=== PATIENT | male | born 1955 | race Caucasian/White ===

== ENCOUNTER 2016-10-11 13:53 | Observation (INO) | payer SELFPAY ==
[~2016-10-11] VITALS: Ht 180.3 cm; Wt 84.1 kg
[~2016-10-11 13:53] MED LIST: BENICAR 20MG TA20 MG PO; CYMBALTA 60MG60 MG PO; HALCION; PREVACID 30MG30 MG PO
[2016-10-11] MEDS ORDERED: PRINIVIL10 MG PO (15:23)
[2016-10-11] MEDS ORDERED: PRILOSEC 20MG20 MG PO (15:23)
[2016-10-11] MEDS ORDERED: HCTZ 25MG TAB25 MG PO (15:23)
[2016-10-11] MEDS ORDERED: ZOLOFT 50MG50 MG PO (15:24)
[2016-10-11] MEDS ORDERED: REMERON 15M15 MG/TA1 PO (15:24)
[2016-10-11] MEDS ORDERED: XANAX .25M0.25 MG/TA PO ×2 (15:25→15:26)
[2016-10-11 16:25] VITALS: BP 142/97; PULSE 87; TEMP 99
[2016-10-11 17:56] VITALS: BP 152/91; PULSE 95; TEMP 99.9
[2016-10-11 18:07] LABS: PARTIAL THROMBOPLASTIN TIME 33.6 SECONDS (26.0-37.0)
[2016-10-11 18:09] LABS: INR 1.1 (0.8-3.0); PROTHROMBIN TIME 12.2 SECONDS (9.7-12.8)
[2016-10-11 20:00] VITALS: BP 157/98; PULSE 88; TEMP 99.1
[2016-10-11 22:17] VITALS: BP 144/91; PULSE 92; TEMP 99
[2016-10-11 23:59] VITALS: BP 147/96; PULSE 96; TEMP 99.2
[2016-10-12] VITALS (8 sets, daily range): BP systolic 144–176; BP diastolic 90–105; PULSE 62–94; TEMP 98.5–100.1
[2016-10-12 07:43] LABS: BASO % 0.6 % (0.0-2.0); EOS # 0.1 (0.0-0.7); EOS % 1.5 % (0-4.0); GRAN # 4.6 (1.4-6.5); GRAN % 64.5 % (42.2-75.2); HEMATOCRIT 39.9 % (42.0-52.0); HEMOGLOBIN 13.4 g/dl (13.5-18.0); LYMPH # 1.6 (1.2-3.4); LYMPH % 21.8 % (20.0-51.0); MEAN CELL VOLUME 98 fl (80.0-100.0); MEAN CORPUSCULAR HEMOGLOBIN 33 pg (27.0-31.0); MEAN CORPUSCULAR HGB CONC 34 g/dl (33.0-37.0); MEAN PLATELET VOLUME 10.1 fl (7.4-10.4); MONO # 0.8 (0.1-0.6); MONO % 11.3 % (1.7-9.3); PLATELET COUNT 180 K/mm3 (130-400); RED BLOOD COUNT 4.08 M/mm3 (4.20-5.60); WHITE BLOOD COUNT 7.1 K/mm3 (4.8-10.8)
[2016-10-12 08:30] LABS: ALBUMIN 3.1 gm/dL (3.5-5.0); BILIRUBIN,TOTAL 2.1 mg/dL (0.0-1.0); CALCIUM 8.3 mg/dL (8.4-10.2); CREATININE, serum 0.86 mg/dL (0.66-1.25); POTASSIUM 3.1 mmol/L (3.4-5.0); TOTAL PROTEIN 6.5 gm/dL (6.4-8.2)
== END 2016-10-12 17:39 | disposition home or self-care (01) ==
LOC: SURG 13:53
PROVIDERS: Surgery
DX: R11.2 Nausea with vomiting, unspecified (principal); F10.10 Alcohol abuse, uncomplicated; I10 Essential (primary) hypertension
CPT/HCPCS: G0378; G0379; J2060; J2405

== ENCOUNTER 2017-07-26 13:08 | Day surgery (SDC) | payer SELFPAY ==
[~2017-07-26] VITALS: Ht 180.3 cm; Wt 95.9 kg
[~2017-07-26 13:08] MED LIST changes: +HCTZ 25MG TAB25 MG PO; +PRILOSEC 20MG20 MG PO; +PRINIVIL10 MG PO; +REMERON 15M15 MG/TA1 PO; +XANAX .25M0.25 MG/TA PO; +ZOLOFT 50MG50 MG PO
[2017-07-26 14:21] VITALS: BP 143/86; PULSE 81; TEMP 98.4
[2017-07-26] MEDS ORDERED: XANAX 0.5MG0.5 MG PO (14:34)
[2017-07-26] MEDS ORDERED: ZOLOFT 100MG100 MG PO (14:34)
[2017-07-26] MEDS ORDERED: BENADRYL25 M2 PO (14:35)
[2017-07-26] MEDS ORDERED: PRILOTC PO (14:35)
[2017-07-26 14:36] LABS: CALCIUM 9.4 mg/dL (8.4-10.2); CREATININE, serum 0.77 mg/dL (0.66-1.25); POTASSIUM 4.2 mmol/L (3.4-5.0)
[2017-07-26 18:30] VITALS: BP 165/90; PULSE 82; TEMP 98.3
[2017-07-26 18:45] VITALS: BP 156/98; PULSE 64
[2017-07-26 19:15] VITALS: BP 142/89; PULSE 63
[2017-07-26 19:45] VITALS: BP 147/96; PULSE 64; TEMP 98.3
[2017-07-26 21:15] VITALS: BP 160/93; PULSE 64; TEMP 98.3
== END 2017-07-26 21:36 | disposition home or self-care (01) ==
LOC: SDCO 13:08 → SURG 18:30 → SDCO 21:36
PROVIDERS: Nurse Anesthetist, Certified Registered
DX: N30.81 Other cystitis with hematuria (principal); N32.9 Bladder disorder, unspecified; I10 Essential (primary) hypertension; F17.210 Nicotine dependence, cigarettes, uncomplicated; K21.9 Gastro-esophageal reflux disease without esophagitis; F10.10 Alcohol abuse, uncomplicated; F12.90 Cannabis use, unspecified, uncomplicated; F32.9 Major depressive disorder, single episode, unspecified; F41.9 Anxiety disorder, unspecified; E78.5 Hyperlipidemia, unspecified; G47.00 Insomnia, unspecified; M72.2 Plantar fascial fibromatosis
CPT/HCPCS: OP; C1769; J0360; J0690; J1170; J1885; J2405; J2704; J3010; J7120; Q9967

== ENCOUNTER 2017-09-27 15:26 | Inpatient (IN) | payer SELFPAY ==
[~2017-09-27] VITALS: Ht 180.3 cm; Wt 96.1 kg
[~2017-09-27 15:26] MED LIST changes: +BENADRYL25 M2 PO; +PRILOTC PO; +XANAX 0.5MG0.5 MG PO; +ZOLOFT 100MG100 MG PO
[2017-10-03] VITALS (11 sets, daily range): BP systolic 112–169; BP diastolic 70–94; PULSE 80–101; TEMP 97.7–100.6
[2017-10-04] VITALS (14 sets, daily range): BP systolic 127–187; BP diastolic 82–100; PULSE 80–94; TEMP 98.1–98.7
[2017-10-05] VITALS (10 sets, daily range): BP systolic 136–170; BP diastolic 86–97; PULSE 80–97; TEMP 97.8–100.5
[2017-10-05 07:37] LABS: HEMATOCRIT 37.8 % (42.0-52.0)
[2017-10-05 07:51] LABS: CALCIUM 8.8 mg/dL (8.4-10.2); CREATININE, serum 0.69 mg/dL (0.66-1.25); POTASSIUM 3.4 mmol/L (3.4-5.0)
[2017-10-06] VITALS (7 sets, daily range): BP systolic 133–158; BP diastolic 78–98; PULSE 65–92; TEMP 98.2–99.3
[2017-10-06] MEDS ORDERED: ROXICODONE 55 MG/TAB PO (11:07)
== END 2017-10-06 13:10 | disposition home or self-care (01) | DRG 982 ==
LOC: INPTSU 10-03 05:17 → SURG 10-03 07:30
PROVIDERS: Surgery
PROC: 8E0W4CZ Robotic Assisted Procedure of Trunk Region, Percutaneous Endoscopic Approach (ICD-10-PCS; 2017-10-03)
PROC: 0DTN4ZZ Resection of Sigmoid Colon, Percutaneous Endoscopic Approach (ICD-10-PCS; principal; 2017-10-03 07:30)
DX: N32.1 Vesicointestinal fistula (principal); K57.32 Diverticulitis of large intestine without perforation or abscess without bleeding; D12.5 Benign neoplasm of sigmoid colon; I10 Essential (primary) hypertension; F10.10 Alcohol abuse, uncomplicated; Z23 Encounter for immunization
CPT/HCPCS: A4314; A9284; J0360; J0690; J1100; J1650; J1885; J2060; J2405; J2704; J2710; J3010; J7120

== ENCOUNTER 2020-09-24 16:22 | Inpatient (IN) | payer MEDICAID, OTHER ==
[~2020-09-24] VITALS: Ht 190.5 cm; Wt 81.9 kg
[2020-09-24] VITALS (144 sets, daily range): BP systolic 86–97; BP diastolic 55–67; PULSE 79–84; TEMP 98–98.4; O2SAT 84–100
[~2020-09-24 16:22] MED LIST changes: +ROXICODONE 55 MG/TAB PO
[2020-09-24 20:38] LABS: HEMOGLOBIN 11.9 g/dl (13.5-18.0); MEAN CELL VOLUME 88 fl (80.0-100.0); MEAN CORPUSCULAR HEMOGLOBIN 29 pg (27.0-31.0); MEAN CORPUSCULAR HGB CONC 33 g/dl (33.0-37.0); MEAN PLATELET VOLUME 11.1 fl (7.4-10.4); PLATELET COUNT 343 K/mm3 (130-400); RED BLOOD COUNT 4.17 M/mm3 (4.20-5.60)
[2020-09-24 20:44] LABS: ALBUMIN 2.7 gm/dL (3.5-5.0); BILIRUBIN,TOTAL 4.8 mg/dL (0.0-1.0); CALCIUM 7.8 mg/dL (8.4-10.2); CREATININE, serum 0.69 (0.66-1.25); HEMATOCRIT 36.5 % (42.0-52.0); POTASSIUM 3.7 mmol/L (3.4-5.0); TOTAL PROTEIN 6.1 gm/dL (6.4-8.2)
[2020-09-24 21:01] LABS: BAND 3 % (0-10); EOSINOPHIL 1 % (0-4); HYPOCHROMIA 1+; LYMPHOCYTE 10 % (20.0-51.0); METAMYELOCYTE 1 % (0-0); MYELOCYTE 1 % (0-0); NEUTROPHILS 82 % (42.0-75.2)
[2020-09-24 21:02] LABS: ANISOCYTOSIS 1+; PLATELET ESTIMATE NORMAL (NORMAL)
[2020-09-24 21:12] LABS: ARTERIAL BLOOD GAS HCO3 26.6 meq/L (22-26); ARTERIAL BLOOD GAS PCO2 43.8 mmHg (35-45); ARTERIAL BLOOD GAS PO2 73.2 mmHg (80-100)
[2020-09-24 21:13] LABS: ARTERIAL BLD GAS O2 SATURATION 94.8 % (92-100); ARTERIAL BLD GAS TCO2 CT 27.9; ARTERIAL BLOOD GAS BASE EXCESS 1.5 (-2-2)
[2020-09-24 21:19] LABS: INR 1.2 (0.8-3.0); PROTHROMBIN TIME 13.1 SECONDS (9.7-12.8)
[2020-09-24 21:43] LABS: AMYLASE 86 U/L (30-110); LIPASE 141 U/L (23-300)
[2020-09-24] MEDS ORDERED: BENADRYL25 M2 PO (22:04)
--- NOTE | 2020-09-24 22:05 | NUR ---
Vancomycin Initial Dosing Pharmacy Note Ordering provider: Rayray Hartmann MD 64 yo M transfer from [place], post surgical intervention for acute gangrenous cholecystitis on 09/21. Began worsening on 09/22 and OSH BC grew out MRSA. Indication: GI/Intra-abdominal infection (7 days) Goal: 15-20 Hx: none identified BMI:27.9 Wt: 101.4kg SCr: 0.69 estCrCl ~ 159 ml/min t 1/2~5h No vitals documented at this time but has been requiring pressor support WBC: 19 LA:1.5 Micro pending Per discussion with Jenny COVARRUBIAS, no evidence of vanco given at OSH, only zosyn. Loaded pt with 2gm (~20mg/kg) x1. Will start a maintenance regimen of 1.75 gm q12h, as renal function in unlikely an accurat depiction of clearance ability at this time. Will follow renal function trend and micro for need to adjust therapy. Thank you for this dosing consult!
[2020-09-24] MEDS ORDERED: MOBIC15 MG PO (22:06)
[2020-09-24] MEDS ORDERED: COZAAR 25MG25 MG/TAB PO (22:06)
[2020-09-24] MEDS ORDERED: NEXIUM 20MG20 MG PO (22:07)
[2020-09-24] MEDS ORDERED: PROZAC40 MG PO (22:07)
[2020-09-24 22:09] LABS: MUCOUS Present /lpf; PH 5 (5-8); SQUAMOUS EPITHELIAL 0-2 /hpf; URINE APPEARANCE Hazy; URINE BACTERIA Rare /hpf; URINE BILIRUBIN Positive (NEGATIVE); URINE BLOOD 1+ (NEGATIVE); URINE COLOR Amber; URINE GLUCOSE Negative (NEGATIVE); URINE KETONE Negative (NEGATIVE); URINE LEUKOCYTE ESTERASE Negative (NEGATIVE); URINE NITRATE Negative (NEGATIVE); URINE PROTEIN(semi-quant) 1+ (NEGATIVE); URINE RBC 20-50 /hpf; URINE UROBILINOGEN >=4.0 mg/dL (NEGATIVE)
[2020-09-24 22:20] LABS: COLLECTION METHOD CLEAN CATCH
[2020-09-25] VITALS (760 sets, daily range): BP systolic 80–111; BP diastolic 46–65; PULSE 62–103; TEMP 97.9–99.1; O2SAT 77–99
--- NOTE | 2020-09-25 02:00 | NUR ---
PATIENT INTUBATED UPON ARRIVAL TO THIS HOSPITAL AND SEDATED
[2020-09-25 04:59] LABS: HEMOGLOBIN 11.2 g/dl (13.5-18.0); MEAN CELL VOLUME 89 fl (80.0-100.0); MEAN CORPUSCULAR HEMOGLOBIN 29 pg (27.0-31.0); MEAN CORPUSCULAR HGB CONC 33 g/dl (33.0-37.0); MEAN PLATELET VOLUME 11.3 fl (7.4-10.4); PLATELET COUNT 354 K/mm3 (130-400); RED BLOOD COUNT 3.81 M/mm3 (4.20-5.60); REDCELL DISTRIBUTION WIDTH-CV 17.2 % (11.5-14.5)
--- NOTE | 2020-09-25 05:00 | NUR ---
PATIENT CAN BE AWAKENED BY VOICE/ BECOMES RESTLESS/ B/P AFFECTED BY MEDS
[2020-09-25 05:09] LABS: HEMATOCRIT 33.9 % (42.0-52.0)
[2020-09-25 05:12] LABS: ARTERIAL BLD GAS O2 SATURATION 94.8 % (92-100); ARTERIAL BLD GAS TCO2 CT 28.2; ARTERIAL BLOOD GAS HCO3 26.9 meq/L (22-26); ARTERIAL BLOOD GAS PCO2 43.3 mmHg (35-45); ARTERIAL BLOOD GAS PO2 73.8 mmHg (80-100); ARTERIAL BLOOD GAS pH 7.41 (7.35-7.45)
[2020-09-25 05:13] LABS: ALBUMIN 2.6 gm/dL (3.5-5.0); BILIRUBIN,TOTAL 4.7 mg/dL (0.0-1.0); CALCIUM 7.6 mg/dL (8.4-10.2); CREATININE, serum 0.65 (0.66-1.25); MAGNESIUM 2.4 mg/dL (1.6-2.3); PHOSPHOROUS 2.3 mg/dL (2.5-4.5); POTASSIUM 3.8 mmol/L (3.4-5.0); TOTAL PROTEIN 5.7 gm/dL (6.4-8.2)
[2020-09-25 05:44] LABS: BAND 5 % (0-10); EOSINOPHIL 2 % (0-4); HYPOCHROMIA 1+; LYMPHOCYTE 11 % (20.0-51.0); METAMYELOCYTE 3 % (0-0); MYELOCYTE 1 % (0-0); NEUTROPHILS 74 % (42.0-75.2); OVALOCYTES 1+
[2020-09-25 05:45] LABS: ANISOCYTOSIS 1+; PLATELET ESTIMATE NORMAL (NORMAL); TARGET CELLS 1+
[2020-09-25 06:44] LABS: TRICYCLIC ANTIDEPRESS URINE NEGATIVE
--- NOTE | 2020-09-25 07:05 | NUR ---
RECEIVED REPORT FROM SACHA BOTELLO. PT RESTING EASILY ON CURRNET VENT SETTINGS: AC, TV 400, PEEP 10, RR 22, FIO2 75%. FC PATENT AND DRAINING TO GRAVITY. LT RADIAL ART LINE INTACT. SEE GTT FLOWSHEET. CARD DEALER IN PLACE. VSS.
--- NOTE | 2020-09-25 14:03 | NUR ---
Unknown Plan at this time, SW following. ROBB made contact with Corey Storey Son-Emr contact in [place]. Patient has another son in [facility] Alphonse [phone]. Son reports that he there is not a legal form for DPOA. Educated on decision making. Son reports that the patient does not have insurance but was seeing a physician at [facility] in [place]. Son denies that client had any DME use. Son indicated that he does not know much about the rest of his medcal care. SW will continue to follow to prepare for needs and services.
--- NOTE | 2020-09-25 14:20 | NUR ---
SPOKE TO DR WALKER ABOUT TF VS TPN. PHYSICIAN STATES TPN MAY BE BETTER AT THIS TIME. DR MATT NOTIFIED. DR MATT STATES TO LET SOFTWARE DESIGN ENGINEER KNOW TO PLACE ORDERS. ATTEMPTED TO CALL, NO ANSWER AT THIS TIME.
--- NOTE | 2020-09-25 14:45 | NUR ---
PT ROLLED TO RT SIDE TO PLACE PILOW UNDER BOTTOM. WHEN ROLLED BACK, NOTED MIDDLE ABDOMEN INCISION TO START LEAKING SHOWED DR WALKER DRAINAGE, NOTED BLOODY BUT HAS A GREEN TINGE AROUND THE DRAINAGE ON TOWEL. PHYSICIAN STATES TO PLACE A PRESSURE DRESSING OVER SITE AND TO TY AND GET CT ARIANA.
--- NOTE | 2020-09-25 17:20 | NUR ---
DR MATT NOTIFIED AND READ CT REPORTS. NO NEW ORDERS.
--- NOTE | 2020-09-25 17:23 | NUR ---
DR WALKER NOTIFIED OF CT RESULTS. NO NEW ORDERS.
--- NOTE | 2020-09-25 18:07 | NUR ---
SPOKE TO DR OLIVA ABOUT AMIO GTT. PHYSICIAN STATES TO TURN GTT DOWN TO 0.5 MG/MIN ONCE HIT 6 HOUR TERESA AND THEN KEEP CONTINUOUS TILL FURTHER INSTRUCTIONS AT A LATER TIME.
--- NOTE | 2020-09-25 22:00 | NUR ---
Pt SpO2 decreases to 78-85% during turns or oral care - reported this is not a new finding for this pt.
[2020-09-26] VITALS (551 sets, daily range): BP systolic 85–134; BP diastolic 49–76; PULSE 70–92; TEMP 97.2–99.7; O2SAT 79–100
--- NOTE | 2020-09-26 02:30 | NUR ---
Pt's SpO2 continues to desaturate during turning. RT notified.
--- NOTE | 2020-09-26 03:05 | NUR ---
Pt restless, but during stimulation pt wakens, opens eyes and follows several commands before closing eyes again.
[2020-09-26 04:24] LABS: ARTERIAL BLD GAS O2 SATURATION 95.2 % (92-100); ARTERIAL BLD GAS TCO2 CT 27.6; ARTERIAL BLOOD GAS BASE EXCESS 0.4 (-2-2); ARTERIAL BLOOD GAS HCO3 26.1 meq/L (22-26); ARTERIAL BLOOD GAS PCO2 46.9 mmHg (35-45); ARTERIAL BLOOD GAS PO2 77.3 mmHg (80-100); ARTERIAL BLOOD GAS pH 7.36 (7.35-7.45)
[2020-09-26 05:58] LABS: HEMOGLOBIN 10.4 g/dl (13.5-18.0); MEAN CELL VOLUME 91 fl (80.0-100.0); MEAN CORPUSCULAR HEMOGLOBIN 29 pg (27.0-31.0); MEAN CORPUSCULAR HGB CONC 31 g/dl (33.0-37.0); MEAN PLATELET VOLUME 11.5 fl (7.4-10.4); PLATELET COUNT 321 K/mm3 (130-400); RED BLOOD COUNT 3.64 M/mm3 (4.20-5.60); REDCELL DISTRIBUTION WIDTH-CV 17.7 % (11.5-14.5)
[2020-09-26 06:12] LABS: ALBUMIN 2.4 gm/dL (3.5-5.0); BILIRUBIN,TOTAL 4.5 mg/dL (0.0-1.0); CALCIUM 7.3 mg/dL (8.4-10.2); CREATININE, serum 0.53 (0.66-1.25); MAGNESIUM 2.4 mg/dL (1.6-2.3); PHOSPHOROUS 3.6 mg/dL (2.5-4.5); POTASSIUM 3.6 mmol/L (3.4-5.0); TOTAL PROTEIN 5.7 gm/dL (6.4-8.2)
[2020-09-26 06:19] LABS: HEMATOCRIT 33.1 % (42.0-52.0)
[2020-09-26 06:33] LABS: BAND 5 % (0-10); BASOPHIL 1 % (0-2); EOSINOPHIL 2 % (0-4); HYPOCHROMIA 2+; LYMPHOCYTE 9 % (20.0-51.0); NEUTROPHILS 77 % (42.0-75.2); PLATELET ESTIMATE NORMAL (NORMAL)
--- NOTE | 2020-09-26 07:00 | NUR ---
RECEIVED REPORT FROM SACHA ALLEN. PT RESTING EASILY ON CURRENT VENT SETTINGS: TV 400, PEEP 12, FIO2 80, RR 22. FC PATENT AND DRAINING TO GRAVITY. OGT AT 70 CM TO LIS. ETT 23 AT THE TEETH. PIN DRAFTING MACHINE TENDER IN PLACE. VSS. LT RADIAL ART LINE WITH GOOD WAVE FORM. SEE GTT FLOWSHEET.
--- NOTE | 2020-09-26 14:15 | NUR ---
DR WALKER AT BEDSIDE FOR ASSESSMENT. PHYSICIAN CHANGES MIDDLE ABDOMEN DRESSING OUT AND MAKES A SMALL DRAIN OUT OF NON-ADHESIVE GAUZE AND PLACES 4X4 AND MOLNLYCKE MEFIX TAPE OVER IT. PHYSICIAN STATES EVERY 24 HOURS TO TAKE DRESSING OFF AND PUTT DRAIN OUT ABOUT 1/4 INCH EACH TIME AND REPLACE DRESSING OVER. PHYSICIAN STATES TO DO THIS UNTIL IT COMES OUT OR APPEARS TO NOT BE DRAINING HARDLY ANYMORE THEN IT CAN BE PULLED COMPLETELY OUT. PHYSICIAN STATES NO OTHER PLANS FROM HIM AT THIS TIME. DR WALKER NOTES ABRAHAM DRAIN FLUID TO BE MORE GREEN AND A LITTLE LESS CLOUDY TODAY, STATES WILL LEAVE IN PLACE AT THIS TIME.
[2020-09-27] VITALS (584 sets, daily range): BP systolic 102–140; BP diastolic 53–84; PULSE 67–98; TEMP 97.9–98.9; O2SAT 82–99
[2020-09-27 06:08] LABS: HEMOGLOBIN 10.5 g/dl (13.5-18.0); MEAN CELL VOLUME 91 fl (80.0-100.0); MEAN CORPUSCULAR HEMOGLOBIN 29 pg (27.0-31.0); MEAN CORPUSCULAR HGB CONC 31 g/dl (33.0-37.0); MEAN PLATELET VOLUME 11.3 fl (7.4-10.4); PLATELET COUNT 359 K/mm3 (130-400); RED BLOOD COUNT 3.67 M/mm3 (4.20-5.60); REDCELL DISTRIBUTION WIDTH-CV 17.7 % (11.5-14.5)
[2020-09-27 06:15] LABS: HEMATOCRIT 33.4 % (42.0-52.0)
[2020-09-27 06:19] LABS: ALBUMIN 2.5 gm/dL (3.5-5.0); BILIRUBIN,TOTAL 4.8 mg/dL (0.0-1.0); CALCIUM 7.7 mg/dL (8.4-10.2); CREATININE, serum 0.66 (0.66-1.25); MAGNESIUM 2.3 mg/dL (1.6-2.3); PHOSPHOROUS 4.9 mg/dL (2.5-4.5); POTASSIUM 3.6 mmol/L (3.4-5.0); TOTAL PROTEIN 6.2 gm/dL (6.4-8.2)
--- NOTE | 2020-09-27 06:42 | NUR ---
PATIENT BECOMES RESTLESS MOVING HEAD ABOUT THE BED AND COUGHING, RETURN MEDS TO THEIR SAME LEVELS BEFORE
--- NOTE | 2020-09-27 07:20 | NUR ---
RECEIVED REPORT FROM SACHA BOTELLO. PT RESTING EASILY ON CURRENT VENT SETTINGS: TV 400, PEEP 12, FIO2 80%, RR 22. OGT AT 70 CM TO LIS. ABRAHAM RLQ NOTED STILL WITH MINIMAL GEEN DRIANAGE NOTED IN BULB. VSS. NEONATAL PEDIATRIC NURSE IN PLACE. SEE GTT FLOWSHEET.
[2020-09-27 07:34] LABS: ARTERIAL BLOOD GAS BASE EXCESS 4.2 (-2-2); ARTERIAL BLOOD GAS HCO3 29.6 meq/L (22-26); ARTERIAL BLOOD GAS PCO2 47.6 mmHg (35-45); ARTERIAL BLOOD GAS PO2 71.3 mmHg (80-100); ARTERIAL BLOOD GAS pH 7.41 (7.35-7.45)
[2020-09-27 07:35] LABS: ARTERIAL BLD GAS O2 SATURATION 93.7 % (92-100)
--- NOTE | 2020-09-27 08:00 | NUR ---
RT AT BEDSIDE DECREASING FIO2 TO 70%. DR MONTIEL AT BEDSIDE FOR ASSESSMENT. DISCUSSES POC WITH RN AND STATES TO ASK CARDIOLOGY ABOUT SWITCHING AMIO GTT TO NOT CONTINUOUS, WILL SPEAK TO CARDIOLOGY WHEN THEY ROUND. NEW ORDERS RECEIVED BY DR MONTIEL.
--- NOTE | 2020-09-27 08:30 | NUR ---
NOTED ORDERS FOR PICC PLACEMENT. SPOKE WITH DR MATT ABOUT NEEDING THREE LINES OF IV ACCESS D/T COMPATIBILITY AT THIS TIME UNTIL PT EITHER COMES OF AMIO GTT OR TPN. PHYSICIAN STATES IT IS OK TO HOLD OFF ON PICC SWAP FOR CENTRAL UNTIL PT''S STATUS IMPROVES TO WHERE COMPATIBILITY ISSUES ARE NO LONGER. AIV RN NOTIFIED OF POC AT THIS TIME.
[2020-09-27 08:41] LABS: BAND 6 % (0-10); EOSINOPHIL 2 % (0-4); HYPERSEGMENTED POLYS PRESENT; LYMPHOCYTE 4 % (20.0-51.0); METAMYELOCYTE 2 % (0-0); NEUTROPHILS 84 % (42.0-75.2)
[2020-09-27 08:45] LABS: HYPOCHROMIA 1+
[2020-09-27 08:46] LABS: POIKILOCYTOSIS 1+; ROULEAUX 2+; TEAR DROP CELLS 1+
[2020-09-27 09:11] LABS: ANISOCYTOSIS 1+
--- NOTE | 2020-09-27 10:08 | NUR ---
The patient is intubated. SW contacted the patient's son, Corey Johnson, to establish next of kin. Corey reports that the patient's and their mother is . The patient has two living children: Corey Johnson and [place] Johnson. SW contacted [facility] Medical Records. The campus receptionist reports that they do not have a DPOA-HC on file for the patient.
--- NOTE | 2020-09-27 10:08 | NUR ---
OGT OUT PER DR OLIVA'S REQUEST. CARMEN PERFROMED BY STARTED AT 1010, ENDED AT 1035. OGT 14FR REPLACED AT SAME POSITION BEFORE, 70CM AT THE LIP, AIR BOLUS VERIFIED BY RN AND SACHA MOSQUEDA. VSS.
--- NOTE | 2020-09-27 11:30 | NUR ---
ABDOMINAL DRESSING CHANGED PER DR WALKER'S INSTRUCTIONS. SMALL AMOUNT OF DRAINAGE NOTED ON DRESSING WITH SHADOWING ALL THE WAY THROUGH IT ON THE OUTSIDE.
--- NOTE | 2020-09-27 12:00 | NUR ---
DR WALKER AT BEDSIDE FOR ASSESSMENT. PHYSICIAN STATES OKAY TO CONTINUE TPN FOR A FEW DAYS UNTIL BOWEL SOUNDS IMPROVE.
--- NOTE | 2020-09-27 13:30 | NUR ---
DR GRIFFITH AT BEDSIDE FOR ASSESSMENT. PHYSICIAN STATES DOES RECOMMEND AN ERCP AND WILL ACCESS FOR POSSIBILITY EITHER SUNDAY OR SUNDAY THIS WEEK IF PT IS STABLE ENOUGH.
--- NOTE | 2020-09-27 17:30 | NUR ---
NOTIFIED DR WALKER ABOUT PT'S ABDOMINAL DRESSING NEEDING TO BE CHANGED ALREADY D/T BEING SATURATED. PHYSICIAN STATES TO USE FOAM TAPE THIS TIME AND TRY TO CREATE A PRESSURE LIKE DRESSING. PHYSICIAN STATES TO MAKE SURE THAT THERE IS A RECHECK HGB IN THE AM AND TO NOTIFY HIM IF THE BLEEDIGN WORSENS AND PICKS UP.
[2020-09-28] VITALS (662 sets, daily range): BP systolic 103–136; BP diastolic 52–73; PULSE 68–122; TEMP 98.2–99.4; O2SAT 78–98
[2020-09-28 05:43] LABS: ARTERIAL BLD GAS O2 SATURATION 87.7 % (92-100); ARTERIAL BLD GAS TCO2 CT 31.9; ARTERIAL BLOOD GAS BASE EXCESS 4.4 (-2-2); ARTERIAL BLOOD GAS HCO3 30.3 meq/L (22-26); ARTERIAL BLOOD GAS PCO2 52.1 mmHg (35-45); ARTERIAL BLOOD GAS PO2 54.7 mmHg (80-100); ARTERIAL BLOOD GAS pH 7.38 (7.35-7.45)
[2020-09-28 05:46] LABS: MEAN CELL VOLUME 90 fl (80.0-100.0); MEAN CORPUSCULAR HGB CONC 32 g/dl (33.0-37.0); MEAN PLATELET VOLUME 11.3 fl (7.4-10.4); PLATELET COUNT 388 K/mm3 (130-400); REDCELL DISTRIBUTION WIDTH-CV 17.7 % (11.5-14.5)
[2020-09-28 05:58] LABS: INR 1.1 (0.8-3.0); PROTHROMBIN TIME 12.4 SECONDS (9.7-12.8)
[2020-09-28 06:02] LABS: HEMATOCRIT 30.6 % (42.0-52.0); HEMOGLOBIN 9.9 g/dl (13.5-18.0); MEAN CORPUSCULAR HEMOGLOBIN 29 pg (27.0-31.0)
[2020-09-28 06:03] LABS: ALBUMIN 2.6 gm/dL (3.5-5.0); BILIRUBIN,TOTAL 3.9 mg/dL (0.0-1.0); CALCIUM 7.9 mg/dL (8.4-10.2); CREATININE, serum 0.8 (0.66-1.25); MAGNESIUM 2.6 mg/dL (1.6-2.3); TOTAL PROTEIN 6.6 gm/dL (6.4-8.2)
--- NOTE | 2020-09-28 06:17 | NUR ---
PATIENT HAS LOW 02 SATS PRESENT WHEN SEDATION VACATION WAS AFFECTED. PATIENT KEPT BEARING DOWN AND GRITING TEETH, REPLACED SEDATION TO THE SAME LEVEL
[2020-09-28 06:33] LABS: BAND 4 % (0-10); EOSINOPHIL 2 % (0-4); LYMPHOCYTE 4 % (20.0-51.0); METAMYELOCYTE 2 % (0-0); NEUTROPHILS 84 % (42.0-75.2)
[2020-09-28 06:34] LABS: ANISOCYTOSIS 1+; HYPOCHROMIA 1+; PLATELET ESTIMATE NORMAL (NORMAL)
[2020-09-28 06:36] LABS: HYPERSEGMENTED POLYS PRESENT
[2020-09-28 08:36] LABS: PATHOLOGY DIFF REVIEW OK +
--- NOTE | 2020-09-28 11:39 | NUR ---
Art line from left Radial artery removed, cath intact, pressure applied. No bleeding after 5 minutes, pressure dressing applied
[2020-09-28 22:31] LABS: HEPATITIS B CORE AB,TOTAL Negative (()); HEPATITIS B SURFACE ANTIBODY 17.9 (()); HEPATITIS B SURFACE ANTIGEN Negative (Negative); HEPATITIS C VIRUS ANTIBODY Negative (Negative)
[2020-09-29] VITALS (832 sets, daily range): BP systolic 111–141; BP diastolic 65–68; PULSE 67–76; TEMP 98.1–98.9; O2SAT 88–98
[2020-09-29 05:24] LABS: MEAN CELL VOLUME 93 fl (80.0-100.0); MEAN CORPUSCULAR HGB CONC 31 g/dl (33.0-37.0); MEAN PLATELET VOLUME 10.9 fl (7.4-10.4); PLATELET COUNT 382 K/mm3 (130-400); RED BLOOD COUNT 3.09 M/mm3 (4.20-5.60); REDCELL DISTRIBUTION WIDTH-CV 17.7 % (11.5-14.5)
[2020-09-29 05:32] LABS: ARTERIAL BLD GAS TCO2 CT 36.1; ARTERIAL BLOOD GAS BASE EXCESS 7.3 (-2-2); ARTERIAL BLOOD GAS HCO3 34.1 meq/L (22-26); ARTERIAL BLOOD GAS PO2 99.5 mmHg (80-100); ARTERIAL BLOOD GAS pH 7.34 (7.35-7.45)
[2020-09-29 05:33] LABS: HEMATOCRIT 28.7 % (42.0-52.0); MEAN CORPUSCULAR HEMOGLOBIN 29 pg (27.0-31.0)
[2020-09-29 05:33] LABS: ARTERIAL BLOOD GAS PCO2 65.1 mmHg (35-45)
[2020-09-29 05:35] LABS: ALBUMIN 3.2 gm/dL (3.5-5.0); BILIRUBIN,TOTAL 4.1 mg/dL (0.0-1.0); CALCIUM 7.9 mg/dL (8.4-10.2); CREATININE, serum 0.92 (0.66-1.25); MAGNESIUM 2.3 mg/dL (1.6-2.3); POTASSIUM 3.6 mmol/L (3.4-5.0); TOTAL PROTEIN 7.2 gm/dL (6.4-8.2)
--- NOTE | 2020-09-29 06:10 | NUR ---
PATIENT BEGINS COUGHING AGAINST TUBE PULSE ELEVATED, FROWN ON FACE RED, UP PAIN MED
[2020-09-29 06:11] LABS: BAND 3 % (0-10); EOSINOPHIL 3 % (0-4); LYMPHOCYTE 1 % (20.0-51.0); METAMYELOCYTE 5 % (0-0); NEUTROPHILS 87 % (42.0-75.2); PLATELET ESTIMATE NORMAL (NORMAL)
[2020-09-29 06:12] LABS: ANISOCYTOSIS 1+; HYPOCHROMIA 1+
--- NOTE | 2020-09-29 06:15 | NUR ---
PT NOT ON WEAN TRIAL HE DOES NOT QUALIFY FOR WEAN TRIAL ON DOCUMENED SETTINGS.
--- NOTE | 2020-09-29 12:57 | NUR ---
SW attended clinical rounds. The patient remains sedated and on the vent. The patient is self pay. Financial Counseling has been consulted and is checking on what they can do to apply for Medicaid, since the patient is intubated and does not have a DPOA-HC.
[2020-09-29 14:24] LABS: CALCIUM 8.1 mg/dL (8.4-10.2); CREATININE, serum 0.94 (0.66-1.25); MAGNESIUM 2.4 mg/dL (1.6-2.3); POTASSIUM 3.5 mmol/L (3.4-5.0)
--- NOTE | 2020-09-29 15:00 | NUR ---
patients son called and was given an update on the patients status and any changes made to his plan of care today.
[2020-09-29 15:41] LABS: HEPATITIS AB (HAV) IGG INDEX 1.27 Index (<=1.00)
[2020-09-30] VITALS (552 sets, daily range): BP systolic 100–142; BP diastolic 56–77; PULSE 68–133; TEMP 98.2–99.3; O2SAT 84–99
[2020-09-30 05:20] LABS: MEAN CELL VOLUME 92 fl (80.0-100.0); MEAN CORPUSCULAR HGB CONC 32 g/dl (33.0-37.0); MEAN PLATELET VOLUME 10.9 fl (7.4-10.4); PLATELET COUNT 479 K/mm3 (130-400); RED BLOOD COUNT 3.23 M/mm3 (4.20-5.60); REDCELL DISTRIBUTION WIDTH-CV 17.7 % (11.5-14.5)
[2020-09-30 05:23] LABS: HEMATOCRIT 29.8 % (42.0-52.0); HEMOGLOBIN 9.4 g/dl (13.5-18.0); MEAN CORPUSCULAR HEMOGLOBIN 29 pg (27.0-31.0)
[2020-09-30 05:31] LABS: ALBUMIN 3.3 gm/dL (3.5-5.0); BILIRUBIN,TOTAL 3.3 mg/dL (0.0-1.0); CREATININE, serum 0.98 (0.66-1.25); MAGNESIUM 2.3 mg/dL (1.6-2.3); POTASSIUM 3.1 mmol/L (3.4-5.0); TOTAL PROTEIN 7.4 gm/dL (6.4-8.2)
[2020-09-30 05:36] LABS: ARTERIAL BLD GAS O2 SATURATION 96.9 % (92-100); ARTERIAL BLOOD GAS BASE EXCESS 10.1 (-2-2); ARTERIAL BLOOD GAS HCO3 36.2 meq/L (22-26); ARTERIAL BLOOD GAS PCO2 58.5 mmHg (35-45); ARTERIAL BLOOD GAS PO2 94.6 mmHg (80-100); ARTERIAL BLOOD GAS pH 7.41 (7.35-7.45)
[2020-09-30 05:48] LABS: LYMPHOCYTE 5 % (20.0-51.0); NEUTROPHILS 89 % (42.0-75.2)
[2020-09-30 05:49] LABS: ANISOCYTOSIS 1+; HYPOCHROMIA 2+; PLATELET ESTIMATE INCREASED (NORMAL)
--- NOTE | 2020-09-30 09:55 | NUR ---
Darlene, financial counselor, reports that she completed a Medicaid application with the patient's son and will try and code it. She is checking to see if there are any forms that the son will have to sign.
--- NOTE | 2020-09-30 11:57 | NUR ---
ROBB contacted and faxed a referral to Edi at [facility]. Edi reports that the patient's Medicaid would have to be active before they could consider the patient. Awaiting screen.
--- NOTE | 2020-09-30 17:45 | NUR ---
DID A SEDATION VACATION THIS MORNING. TURNED SEDATION COMPLETELY OFF, PATIENT BECAME MORE ALERT AND RESPONSIVE, WAS ABLE TO FOLLOW MY COMMANDS AND NOD YES AND NO TO QUESTIONS.
[2020-09-30 17:49] LABS: HEMATOCRIT 27.9 % (42.0-52.0)
--- NOTE | 2020-09-30 19:20 | NUR ---
Report received from Edda. Pt remains sedated on mechanical ventilator. RT at bedside. Oncoming and off going nurses verified pumps, wounds, skin and ETT/ OG placement with vent settings.
--- NOTE | 2020-09-30 22:55 | NUR ---
PT DOES NOT QUALIFY FOR WEAN TRIAL HIS PEEP AND FI02 IS TOO HIGH. PT ON DOCUMENTED SETTINGS NORAH WELL WITH NO DISTRESS NOTED AT THIS TIME
[2020-10-01] VITALS (734 sets, daily range): BP systolic 102–139; BP diastolic 58–75; PULSE 65–73; TEMP 98.5–99.1; O2SAT 82–100
--- NOTE | 2020-10-01 00:30 | NUR ---
Tube feeds turned off due to NPO at midnight for upcoming surgical procedure.
--- NOTE | 2020-10-01 01:40 | NUR ---
During pt bathing and ROM increased grimacing while closing eyes was noted with movements. Increased Fentanyl to assist with signs of increased pain.
[2020-10-01 05:00] LABS: ARTERIAL BLD GAS O2 SATURATION 97.3 % (92-100); ARTERIAL BLOOD GAS BASE EXCESS 7.2 (-2-2); ARTERIAL BLOOD GAS HCO3 33.2 meq/L (22-26)
[2020-10-01 05:26] LABS: MEAN CELL VOLUME 93 fl (80.0-100.0); MEAN CORPUSCULAR HGB CONC 32 g/dl (33.0-37.0); MEAN PLATELET VOLUME 11.1 fl (7.4-10.4); PLATELET COUNT 512 K/mm3 (130-400); RED BLOOD COUNT 2.86 M/mm3 (4.20-5.60); REDCELL DISTRIBUTION WIDTH-CV 17.9 % (11.5-14.5)
[2020-10-01 05:34] LABS: HEMATOCRIT 26.6 % (42.0-52.0); HEMOGLOBIN 8.6 g/dl (13.5-18.0); MEAN CORPUSCULAR HEMOGLOBIN 30 pg (27.0-31.0)
[2020-10-01 05:37] LABS: BILIRUBIN,TOTAL 2.3 mg/dL (0.0-1.0); CALCIUM 7.9 mg/dL (8.4-10.2); CREATININE, serum 0.96 (0.66-1.25); TOTAL PROTEIN 7.3 gm/dL (6.4-8.2)
[2020-10-01 05:52] LABS: ANISOCYTOSIS 1+; BAND 2 % (0-10); EOSINOPHIL 6 % (0-4); HYPOCHROMIA 1+; LYMPHOCYTE 5 % (20.0-51.0); NEUTROPHILS 83 % (42.0-75.2); PLATELET ESTIMATE NORMAL (NORMAL)
--- NOTE | 2020-10-01 07:00 | NUR ---
Report provided to Alvaro GONCALVES.
--- NOTE | 2020-10-01 07:15 | NUR ---
RECEIVED REPORT FROM SACHA DUVALL. PT RESTING EASILY ON CURRENT VENT SETTINGS: TV 500, PEEP 10, RR 22, FIO2 50%. FC PATENT AND DRAINING TO GRAVITY. AQUARIUM SPECIALIST IN PLACE. SEE GTT FLOWSHEET. VSS. PT'S EYES ARE OPEN AND LOOKS AROUND THE ROOM BUT DOES NOT FOLLOW COMMANDS OR LOOKS AT RN WHEN SPEAKING DIRECTLY TO PT.
--- NOTE | 2020-10-01 07:30 | NUR ---
DR GRIFFITH AT BEDSIDE FOR ASSESSMENT. [facility] IS GOING TO SPEAK TO DR PARK AND IS TENTATIVELY PLANNING ERCP STILL TODAY BUT WILL INFORM RN WHEN DECISION IS MADE.
--- NOTE | 2020-10-01 08:45 | NUR ---
DR GALLEGOS AT BEDSIDE FOR ASSESSMENT. NEW ORDERS RECEIVED.
--- NOTE | 2020-10-01 09:05 | NUR ---
DR GALLEGOS STATES NO ERCP PLANNED TODAY. OK TO GIVE LOVENOX AND RESTART TF. PHYSICIAN ALSO STATES IF OK WITH PICC LINE ACCESS CAN PULL OUT CENTRAL LINE. WILL REEVLAUTE MEDICATIONS COMPATIBILITY PRIOR TO DC CENTRAL LINE.
--- NOTE | 2020-10-01 09:52 | NUR ---
SPOKE TO OIL PIPE INSPECTOR HELPER ABOUT TF RESTART SINCE NO ERCP. STATES CAN START AT 30ML/HR THEN BUMP BACK TO GOAL OF 55 ML/HR IF RESIDUALS ARE OKAY. WAITING FOR TF TO ARRIVE FROM DIETARY.
--- NOTE | 2020-10-01 12:25 | NUR ---
DR WALKER AT BEDSIDE FOR ASSESSMENT. PHYSICIAN PULLS OUT ABRAHAM DRAIN THAT WAS IN RLQ AT THIS TIME AND PLACES GAUZE WITH TEGADERM OVER SITE.
--- NOTE | 2020-10-01 13:40 | NUR ---
AFTER MULTIPLE ATTEMPTS TO FIX OGT, OGT REPLACED WITH ANOTHER 14FR AND REPLACED AT 69CM. X2 RN VERIFIED AIR BOLUS. TF INITIATED AT 30ML/HR PER MORTGAGE LOAN ASSISTANT RECOMMENDATIONS.
--- NOTE | 2020-10-01 16:35 | NUR ---
DR GALLEGOS GIVEN LAB WORK FROM OTHER FACILITY PER HIS REQUEST. ALSO INFORMED PHYSICIAN THAT PT IS BACK IN AFIB SINCE 1610 90-LOW 100s.
--- NOTE | 2020-10-01 17:54 | NUR ---
RESIDUAL 80ML, TF INCREASED TO 55ML/HR PER CNC FIELD SERVICE ENGINEER RECOMMENDATIONS.
--- NOTE | 2020-10-01 20:00 | NUR ---
Assessment complete. Pt is sedated and on ventilator. ALBINA PICC has good blood return and flushes easily. Kannan to CAL remains free of complications. Pt repositioned in bed and appears comfortable. Call light within reach.
[2020-10-02] VITALS (672 sets, daily range): BP systolic 118–165; BP diastolic 59–83; PULSE 70–82; TEMP 98.5–99; O2SAT 91–98
[2020-10-02 05:59] LABS: BASO # 0.1 (0.0-0.2); BASO % 0.4 % (0.0-2.0); EOS # 0.4 (0.0-0.7); GRAN # 17.9 (1.4-6.5); GRAN % 82.5 % (42.2-75.2); LYMPH # 1.5 (1.2-3.4); LYMPH % 6.8 % (20.0-51.0); MEAN CELL VOLUME 93 fl (80.0-100.0); MEAN CORPUSCULAR HGB CONC 31 g/dl (33.0-37.0); MONO # 1.2 (0.1-0.6); MONO % 5.5 % (1.7-9.3); RED BLOOD COUNT 3.14 M/mm3 (4.20-5.60)
[2020-10-02 06:12] LABS: ALBUMIN 3.1 gm/dL (3.5-5.0); BILIRUBIN,TOTAL 1.8 mg/dL (0.0-1.0); CALCIUM 8.2 mg/dL (8.4-10.2); CREATININE, serum 0.84 (0.66-1.25); TOTAL PROTEIN 7.8 gm/dL (6.4-8.2)
[2020-10-02 06:12] LABS: ARTERIAL BLD GAS O2 SATURATION 99.1 % (92-100); ARTERIAL BLD GAS TCO2 CT 32.3; ARTERIAL BLOOD GAS HCO3 30.6 meq/L (22-26); ARTERIAL BLOOD GAS PCO2 57.3 mmHg (35-45); ARTERIAL BLOOD GAS PO2 162.5 mmHg (80-100); ARTERIAL BLOOD GAS pH 7.35 (7.35-7.45)
[2020-10-02 06:14] LABS: HEMATOCRIT 29.3 % (42.0-52.0); HEMOGLOBIN 9.1 g/dl (13.5-18.0); MEAN CORPUSCULAR HEMOGLOBIN 29 pg (27.0-31.0); PLATELET COUNT 653 K/mm3 (130-400)
--- NOTE | 2020-10-02 11:39 | NUR ---
SEDATION DECREASED PER FOR VENT WEANING TRIAL.
--- NOTE | 2020-10-02 16:54 | NUR ---
NO CHANGE IN SEDATION AT THIS TIME. PT PREVIOUSLY ON SEDATION VACATION AND WEANING TRIAL PER . PT OPENS EYES TO VOICE BUT DOES NOT FOLLOW ANY COMMANDS. SEDATION AT LOW RATE FOR OVER FOUR HOURS AND STILL UNABLE TO FOLLOW COMMANDS. SEDATION INCREASED D/T PT BITING ON ET TUBE. PT STILL REMAINS ON VENT WEANING TRIAL. WILL RETURN TO ASSIST CONTROL THIS EVENING PER .
--- NOTE | 2020-10-02 20:00 | NUR ---
Assessment complete. Pt is minimally responsive on ventilator. ALBINA PICC infusing free of complications. Brunner to DD is free of complications. Dressings to ABD incisions are CDI. Pt repositioned for comfort. Call light within reach.
[2020-10-03] VITALS (668 sets, daily range): BP systolic 129–155; BP diastolic 63–77; PULSE 75–83; TEMP 98.7–99.7; O2SAT 77–99
[2020-10-03 05:38] LABS: ARTERIAL BLD GAS O2 SATURATION 97.6 % (92-100); ARTERIAL BLOOD GAS BASE EXCESS 1.4 (-2-2); ARTERIAL BLOOD GAS HCO3 27.4 meq/L (22-26); ARTERIAL BLOOD GAS PCO2 49.9 mmHg (35-45); ARTERIAL BLOOD GAS PO2 101.5 mmHg (80-100); ARTERIAL BLOOD GAS pH 7.36 (7.35-7.45)
[2020-10-03 05:58] LABS: BASO # 0.1 (0.0-0.2); BASO % 0.4 % (0.0-2.0); EOS # 0.3 (0.0-0.7); EOS % 1.7 % (0-4.0); GRAN # 16.3 (1.4-6.5); GRAN % 83.6 % (42.2-75.2); LYMPH # 1.5 (1.2-3.4); LYMPH % 7.6 % (20.0-51.0); MEAN CORPUSCULAR HGB CONC 30 g/dl (33.0-37.0); MEAN PLATELET VOLUME 10.9 fl (7.4-10.4); MONO # 1.1 (0.1-0.6); MONO % 5.5 % (1.7-9.3); PLATELET COUNT 633 K/mm3 (130-400); RED BLOOD COUNT 2.98 M/mm3 (4.20-5.60); REDCELL DISTRIBUTION WIDTH-CV 18.2 % (11.5-14.5)
[2020-10-03 05:59] LABS: HEMATOCRIT 29.1 % (42.0-52.0); HEMOGLOBIN 8.8 g/dl (13.5-18.0); MEAN CELL VOLUME 98 fl (80.0-100.0); MEAN CORPUSCULAR HEMOGLOBIN 30 pg (27.0-31.0)
[2020-10-03 06:15] LABS: ALBUMIN 3.2 gm/dL (3.5-5.0); BILIRUBIN,TOTAL 1.4 mg/dL (0.0-1.0); CALCIUM 8.4 mg/dL (8.4-10.2); CREATININE, serum 0.77 (0.66-1.25); POTASSIUM 3.3 mmol/L (3.4-5.0)
--- NOTE | 2020-10-03 07:00 | NUR ---
During sedation vacation pt is responsive and will follow with his eyes but does not follow commands.
--- NOTE | 2020-10-03 09:40 | NUR ---
PATIENT PLACED ON WEANING TRIAL AND PROPOFOL AND FENTANYL ARE DISCONTINUED AT THIS TIME.
--- NOTE | 2020-10-03 11:15 | NUR ---
DR. MONTIEL GIVES ORDER TO EXTUBATE THIS PATIENT.
--- NOTE | 2020-10-03 11:30 | NUR ---
PATIENT IS EXTUBATED AT 1125. HE IS PLACED ON 10 L VIA OXYMASK. HIS COUGH IS VERY VERY WEAK. HE IS UNABLE TO SPEAK AND APPEARS VERY CONFUSED. WILL CONTINUE TO MONITOR.
--- NOTE | 2020-10-03 16:25 | NUR ---
SUPERVISOR ROUGH END, YOANNA, CALLED TO PLACE PATIENT ON THE BIPAP. HE IS NOW ON 15L O2 VIA OXYMASK AND IS NOT MAINTAINING SPO2 ABOVE 88%. HE CONTINUES TO HAVE A WEAK COUGH AND DOES NOT CLEAR HIS SECRETIONS WELL. DR. MONTIEL ON UNIT AND NOTIFIED.
[2020-10-03 19:54] LABS: ARTERIAL BLD GAS O2 SATURATION 91.1 % (92-100); ARTERIAL BLD GAS TCO2 CT 21.2; ARTERIAL BLOOD GAS BASE EXCESS -3.1 (-2-2); ARTERIAL BLOOD GAS HCO3 20.3 meq/L (22-26); ARTERIAL BLOOD GAS PCO2 30.2 mmHg (35-45); ARTERIAL BLOOD GAS PO2 59.5 mmHg (80-100); ARTERIAL BLOOD GAS pH 7.45 (7.35-7.45)
--- NOTE | 2020-10-03 20:00 | NUR ---
Assessment complete. Pt is alert and responsive to voice but cannot answer orientation questions. Breathing is even but labored after repositioning. RT in room to perform breathing treatment. ALBINA PICC infusing free of complications. Brunner to DD is free of complications. ABD incision dressing are CDI. Pt is resting quietly in the bed and he denies further needs. Call light within reach.
--- NOTE | 2020-10-03 21:20 | NUR ---
PT BEGAN TO DESAT AND MAINTAIN SATURATION AT 87% ON 15LPM OXYMASK. THEREFORE PT WAS PLACED ON BIPAP AT DOCUMENTED SETTINGS NORAH WELL WITH A LARGE MASK ON. LEAK REMAINS TO BE LARGER THAN NORMAL BUT PT IS COFORTABLY WITH NO DISTRESS AT THIS TIME. WILL CONTINUE TO MONITOR AND ASSESS PT.
[2020-10-04] VITALS (741 sets, daily range): BP systolic 124–153; BP diastolic 70–81; PULSE 74–80; TEMP 97.5–100.4; O2SAT 76–100
[2020-10-04 05:48] LABS: ARTERIAL BLD GAS O2 SATURATION 96.5 % (92-100); ARTERIAL BLD GAS TCO2 CT 22.7; ARTERIAL BLOOD GAS BASE EXCESS -2.1 (-2-2); ARTERIAL BLOOD GAS HCO3 21.7 meq/L (22-26); ARTERIAL BLOOD GAS pH 7.44 (7.35-7.45)
[2020-10-04 06:00] LABS: BASO # 0.1 (0.0-0.2); BASO % 0.6 % (0.0-2.0); EOS # 0.1 (0.0-0.7); EOS % 0.4 % (0-4.0); GRAN # 17.1 (1.4-6.5); GRAN % 84.1 % (42.2-75.2); LYMPH # 1.5 (1.2-3.4); LYMPH % 7.6 % (20.0-51.0); MEAN CORPUSCULAR HGB CONC 31 g/dl (33.0-37.0); MEAN PLATELET VOLUME 10.9 fl (7.4-10.4); MONO # 1.3 (0.1-0.6); MONO % 6.4 % (1.7-9.3); PLATELET COUNT 686 K/mm3 (130-400); RED BLOOD COUNT 2.87 M/mm3 (4.20-5.60)
[2020-10-04 06:10] LABS: HEMATOCRIT 26.3 % (42.0-52.0); HEMOGLOBIN 8.1 g/dl (13.5-18.0); MEAN CELL VOLUME 92 fl (80.0-100.0); MEAN CORPUSCULAR HEMOGLOBIN 28 pg (27.0-31.0)
[2020-10-04 06:14] LABS: BILIRUBIN,TOTAL 1.9 mg/dL (0.0-1.0); CALCIUM 8.5 mg/dL (8.4-10.2); CREATININE, serum 0.72 (0.66-1.25); POTASSIUM 3.4 mmol/L (3.4-5.0); TOTAL PROTEIN 7.8 gm/dL (6.4-8.2)
--- NOTE | 2020-10-04 07:10 | NUR ---
RECEIVED REPORT FROM SACHA STILL. PT ON BIPAP AT 55%. VSS. FC PATENT AND DRAINING TO GRAVITY. CALL LIGHT WITHIN REACH. PT SLEEPING AT THIS TIME.
--- NOTE | 2020-10-04 08:30 | NUR ---
DR CARMONA AT BEDSIDE FOR ASSESSMENT. PHYSICIAN REQUESTS PT TO BE PLACED ON TPN FOR TODAY AND QUESTIONS POSSIBLE [facility] PLAC[facility]. CASE MANAGEMENT NOTIFIED.
--- NOTE | 2020-10-04 09:33 | NUR ---
SPOKE TO VINCE RN WITH DR CHRISTINA ABOUT PT BEING NPO UNTIL AFTER SPEECH EVAL D/T PER REPORT PT FAILED BEDSIDE SWALLOW TEST. PHYSICIAN STATES OK TO LEAVE ON LAYLA GTT UNTIL EVAL IS COMPLETED. IF PT FAILS, PHYSICIAN STATES TO CALL BACK AND WILL ADJUST ORDERS ACCORDINGLY
[2020-10-04 10:42] LABS: MAGNESIUM 2.7 mg/dL (1.6-2.3); PHOSPHOROUS 4.3 mg/dL (2.5-4.5)
[2020-10-04 10:49] LABS: PRE ALBUMIN 8.8 mg/dL (17.6-36.0)
--- NOTE | 2020-10-04 11:40 | NUR ---
SPEECH EVAL PERFORMED BY CARLTON VELASQUEZ. PER RECOMMENDATIONS, DOES NOT SUGGEST GIVING ANYTHING PO AT THIS TIME AND REEVALUATE TOMORROW. PT WAS PLACED ORIGINALLY ON OXYMASK AT 10L BUT NOTED TO DESAT TO 81% AND SWITCHED TO NRB AT 15L. PT IS ABLE TO INCREASE POX TO 92%, RR 24. SACHA CLARKE NOTIFIED WITH CARDIOLOGY OF SPEECH EVAL AND STATES WILL CHANGE ORDERS ACCORDINGLY.
--- NOTE | 2020-10-04 12:00 | NUR ---
DR GALLEGOS UPDATED ON ST EVAL AND SUGGESTIONS. PHYSICIAN STAATES TO KEEP NPO FOR TODAY.
--- NOTE | 2020-10-04 12:41 | NUR ---
Chaplain killian for patient while standing outside of door.
[2020-10-05] VITALS (731 sets, daily range): BP systolic 122–157; BP diastolic 66–90; PULSE 74–87; TEMP 98–100.4; O2SAT 40–100
[2020-10-05 04:58] LABS: BASO # 0.1 (0.0-0.2); BASO % 0.5 % (0.0-2.0); EOS # 0.1 (0.0-0.7); EOS % 0.4 % (0-4.0); GRAN # 17.7 (1.4-6.5); GRAN % 85.8 % (42.2-75.2); LYMPH # 1.5 (1.2-3.4); LYMPH % 7.4 % (20.0-51.0); MEAN CELL VOLUME 93 fl (80.0-100.0); MEAN CORPUSCULAR HGB CONC 31 g/dl (33.0-37.0); MEAN PLATELET VOLUME 10.5 fl (7.4-10.4); MONO # 1.1 (0.1-0.6); MONO % 5.3 % (1.7-9.3); PLATELET COUNT 693 K/mm3 (130-400); RED BLOOD COUNT 2.75 M/mm3 (4.20-5.60); REDCELL DISTRIBUTION WIDTH-CV 18.1 % (11.5-14.5)
[2020-10-05 05:02] LABS: HEMATOCRIT 25.6 % (42.0-52.0); HEMOGLOBIN 7.8 g/dl (13.5-18.0); MEAN CORPUSCULAR HEMOGLOBIN 28 pg (27.0-31.0)
[2020-10-05 05:11] LABS: CALCIUM 8.7 mg/dL (8.4-10.2); CREATININE, serum 0.67 (0.66-1.25); MAGNESIUM 2.5 mg/dL (1.6-2.3); PHOSPHOROUS 3.7 mg/dL (2.5-4.5)
[2020-10-05 05:13] LABS: POTASSIUM 2.8 mmol/L (3.4-5.0)
--- NOTE | 2020-10-05 20:59 | NUR ---
DURING THIS EVENING SHIFT PATIENT HAS REMOVED BIPAP HOSE FROM MASK 3 TIMES AND SATURATIONS HAS DROPPED TO 80%, RECOVERY IS SLOW TO NORMAL SATS IN 90s, PATIENT BEING INSTRUCTED TO LEAVE MASK AND HOSE ALONE, PATIENT SEEMS TO UNDERSTAND WILL BE CLOSELY WATCHED
[2020-10-06] VITALS (706 sets, daily range): BP systolic 78–155; BP diastolic 41–85; PULSE 60–92; TEMP 97.9–99; O2SAT 57–100
[2020-10-06 04:47] LABS: BASO # 0.1 (0.0-0.2); BASO % 0.5 % (0.0-2.0); EOS # 0.1 (0.0-0.7); EOS % 0.6 % (0-4.0); GRAN # 18.5 (1.4-6.5); GRAN % 85.8 % (42.2-75.2); LYMPH # 1.7 (1.2-3.4); LYMPH % 7.7 % (20.0-51.0); MEAN CELL VOLUME 92 fl (80.0-100.0); MEAN CORPUSCULAR HGB CONC 31 g/dl (33.0-37.0); MEAN PLATELET VOLUME 10.3 fl (7.4-10.4); MONO % 4.7 % (1.7-9.3); PLATELET COUNT 644 K/mm3 (130-400); RED BLOOD COUNT 2.77 M/mm3 (4.20-5.60); REDCELL DISTRIBUTION WIDTH-CV 18.5 % (11.5-14.5)
[2020-10-06 04:54] LABS: HEMATOCRIT 25.6 % (42.0-52.0); HEMOGLOBIN 7.9 g/dl (13.5-18.0); MEAN CORPUSCULAR HEMOGLOBIN 29 pg (27.0-31.0)
[2020-10-06 04:56] LABS: CALCIUM 8.9 mg/dL (8.4-10.2); CREATININE, serum 0.71 (0.66-1.25); MAGNESIUM 2.4 mg/dL (1.6-2.3); PHOSPHOROUS 4.3 mg/dL (2.5-4.5); POTASSIUM 3.5 mmol/L (3.4-5.0)
[2020-10-06 05:03] LABS: PRE ALBUMIN 7.4 mg/dL (17.6-36.0)
--- NOTE | 2020-10-06 08:24 | NUR ---
PT TACHYPNIC. RESPIRATIONS IN THE 40'S. BEDSIDE. XRAY AND ABG ORDERED. CONSULT CALLLED TO DR. SIERRA. XRAY COMPLETED. RT NOTIFIED OF ABG. CALLED AND NOTIFIED SON OF POSSIBLE REINTUBATION. WILL CONINTUE TO MONITOR.
--- NOTE | 2020-10-06 09:11 | NUR ---
PT INTUBATED BY ANESTHESIA. ARTLINE PLACED IN RIGHT RADIAL. SEDATION STARTED, OG PLACED. RESTRAINTS PLACED. VSS.
[2020-10-06 10:39] LABS: ARTERIAL BLD GAS TCO2 CT 23.6; ARTERIAL BLOOD GAS BASE EXCESS -5.7 (-2-2); ARTERIAL BLOOD GAS HCO3 21.9 meq/L (22-26); ARTERIAL BLOOD GAS PCO2 54.6 mmHg (35-45); ARTERIAL BLOOD GAS PO2 90.1 mmHg (80-100); ARTERIAL BLOOD GAS pH 7.22 (7.35-7.45)
--- NOTE | 2020-10-06 10:40 | NUR ---
PT'S BP IN THE 'S. NOTIFIED OF BP AND ABG. ORDER RECEIVED FOR NEW VENT SETTINGS AND LEVOPHED.
[2020-10-06 11:11] LABS: COLLECTION METHOD IN
[2020-10-06 11:33] LABS: AMORPHOUS CRYSTAL Present /uL; PH 5 (5-8); SQUAMOUS EPITHELIAL None Seen /hpf; URINE APPEARANCE Cloudy; URINE BACTERIA Rare /hpf; URINE BILIRUBIN Negative (NEGATIVE); URINE BLOOD 3+ (NEGATIVE); URINE COLOR Amber; URINE GLUCOSE Negative (NEGATIVE); URINE KETONE Negative (NEGATIVE); URINE LEUKOCYTE ESTERASE Negative (NEGATIVE); URINE NITRATE Negative (NEGATIVE); URINE PROTEIN(semi-quant) 1+ (NEGATIVE); URINE RBC >50 /hpf; URINE UROBILINOGEN Negative (NEGATIVE); URINE WBC 0-2 /hpf
[2020-10-06 12:40] LABS: ARTERIAL BLD GAS O2 SATURATION 93.3 % (92-100); ARTERIAL BLD GAS TCO2 CT 26.3; ARTERIAL BLOOD GAS BASE EXCESS -1.4 (-2-2); ARTERIAL BLOOD GAS HCO3 24.8 meq/L (22-26); ARTERIAL BLOOD GAS PO2 71.2 mmHg (80-100); ARTERIAL BLOOD GAS pH 7.32 (7.35-7.45)
--- NOTE | 2020-10-06 14:00 | NUR ---
NA LEVEL DROPPED BY 7 POINTS. AND NOTIFIED. CHANGED ORDERS FOR FREE WATER AND TO RECHECK NA LEVEL.
--- NOTE | 2020-10-06 15:15 | NUR ---
Edi, at [facility], reports that he will continue to follow the patient.
--- NOTE | 2020-10-06 16:10 | NUR ---
PT PLACED IN PRONE POSITION WITH THE HELP OF PT, OT, AND RT. ARTLINE SETUP REPOSITIONED AND ZEROED. PT BECAME HYPOTENSIVE IN THE 80'S. LEVOPHED TITRATED NEEDED. WILL CONTINUE TO MONITOR.
--- NOTE | 2020-10-06 17:00 | NUR ---
NO SEDATION VACATION D/T PT BEING PRONED. PT OPENS EYES TO VOICE BUT DOES NOT FOLLOW COMMANDS.
--- NOTE | 2020-10-06 17:44 | NUR ---
PT IS PRONE AT THIS TIME
--- NOTE | 2020-10-06 18:15 | NUR ---
PTS NA DROPPED TO 9 POINTS. NOTIFIED. ORDER RECEIVED TO CHANGE FREE FLUSH TO 200ML Q8HR AND RECHECK NA LEVEL IN AM.
[2020-10-06 19:27] LABS: ARTERIAL BLD GAS O2 SATURATION 96.2 % (92-100); ARTERIAL BLOOD GAS BASE EXCESS -5.1 (-2-2); ARTERIAL BLOOD GAS HCO3 20.9 meq/L (22-26); ARTERIAL BLOOD GAS PCO2 43.4 mmHg (35-45); ARTERIAL BLOOD GAS PO2 90.9 mmHg (80-100)
[2020-10-06 21:51] LABS: IRON,SERUM 23 ug/dL (35-150)
[2020-10-06 22:01] LABS: TOTAL IRON BINDING CAPACITY 233 ug/dL (261-462)
[2020-10-07] VITALS (885 sets, daily range): BP systolic 73–126; BP diastolic 30–80; PULSE 55–70; TEMP 97.5–99; O2SAT 63–100
--- NOTE | 2020-10-07 05:02 | NUR ---
PATIENT HAS BEGUN TO BREATH MORE THAN VENTILATOR, PRESSURE ALARMS, VITAL SIGNS INCREASING, PATIENT PLACED BACK ON 35 MCQ/KG/MIN OF PROPOFOL, AND 100 MCQ OF FENTANYL
[2020-10-07 05:04] LABS: BASO % 0.2 % (0.0-2.0); GRAN # 14.6 (1.4-6.5); GRAN % 89.1 % (42.2-75.2); LYMPH # 1.2 (1.2-3.4); MEAN CORPUSCULAR HGB CONC 29 g/dl (33.0-37.0); MEAN PLATELET VOLUME 10.8 fl (7.4-10.4); MONO # 0.5 (0.1-0.6); PLATELET COUNT 614 K/mm3 (130-400); RED BLOOD COUNT 2.35 M/mm3 (4.20-5.60); REDCELL DISTRIBUTION WIDTH-CV 18.6 % (11.5-14.5)
[2020-10-07 05:13] LABS: CALCIUM 8.3 mg/dL (8.4-10.2); CREATININE, serum 1.33 (0.66-1.25); MAGNESIUM 2.5 mg/dL (1.6-2.3); PHOSPHOROUS 6.9 mg/dL (2.5-4.5); POTASSIUM 4.9 mmol/L (3.4-5.0)
[2020-10-07 05:16] LABS: HEMATOCRIT 22.8 % (42.0-52.0); HEMOGLOBIN 6.7 g/dl (13.5-18.0); MEAN CELL VOLUME 97 fl (80.0-100.0); MEAN CORPUSCULAR HEMOGLOBIN 29 pg (27.0-31.0)
[2020-10-07 05:57] LABS: ARTERIAL BLD GAS O2 SATURATION 96.2 % (92-100); ARTERIAL BLD GAS TCO2 CT 20.4; ARTERIAL BLOOD GAS BASE EXCESS -6.1 (-2-2); ARTERIAL BLOOD GAS HCO3 19.3 meq/L (22-26); ARTERIAL BLOOD GAS PCO2 37.4 mmHg (35-45); ARTERIAL BLOOD GAS PO2 91.2 mmHg (80-100); ARTERIAL BLOOD GAS pH 7.33 (7.35-7.45)
--- NOTE | 2020-10-07 07:10 | NUR ---
RECEIVED REPORT FROM SACHA BOTELLO. PT RESTING EASILY IN PRONE POSITION ON CURRENT VENT SETTINGS: TV 500, PEEP 12, RR 30, FIO2 50%. FC PATENT AND DRAINING TO GRAVITY. RT ART LINE NOTED, SEE GTT FLOWSHEET. MEDICAL CARE EVALUATION SPECIALIST IN PLACE. OGT TO LIS, BROWN/ORANGE COLORED DRAINAGE NOTED. VSS.
--- NOTE | 2020-10-07 08:15 | NUR ---
PT UNPRONED AT THIS TIME. TOLERATED WELL.
--- NOTE | 2020-10-07 09:10 | NUR ---
SPOKE WITH DR CARMONA ABOUT POC. PHYSICIAN REQUESTS PT TO BE STARTED BACK ON TF TODAY AND NO PLANS FOR TRACH/PEG UNTIL MIDDLE OF NEXT WEEK IF NECESSARY.
[2020-10-07 09:20] LABS: HEMATOCRIT 23.5 % (42.0-52.0)
[2020-10-07 09:31] LABS: CALCIUM 8.1 mg/dL (8.4-10.2); CREATININE, serum 1.38 (0.66-1.25); POTASSIUM 4.7 mmol/L (3.4-5.0)
--- NOTE | 2020-10-07 13:13 | NUR ---
DR MILNER AT BEDSIDE FOR ASSESSMENT, NEW ORDERS RECEIVED. PHYSICIAN STATES DINO RAMIREZ AN HOUR LATER DC GTT. SEE FLOWSHEET AND MAR. TF INITIATED AT 25ML/HR PER ORDERS.
--- NOTE | 2020-10-07 14:10 | NUR ---
DR SIERRA AT BEDSIDE FOR ASSESSMENT AND DISCUSSING LAB LEVELS AND FSBS. PHYSICIAN STATES MAY NEED TO CONSIDER ADDING LONG ACTING INSULIN TO GET FSBS LESS THAN 130 EACH TIME. WILL SPEAK TO DR GAMEZ OR DR MATT. DR SIERRA AWARE OF PRBC AND CREATINE LEVEL.
[2020-10-07 15:02] LABS: ALBUMIN 2.9 gm/dL (3.5-5.0); BILIRUBIN,TOTAL 1.1 mg/dL (0.0-1.0); CALCIUM 8.1 mg/dL (8.4-10.2); CREATININE, serum 1.36 (0.66-1.25); POTASSIUM 4.3 mmol/L (3.4-5.0); TOTAL PROTEIN 7.3 gm/dL (6.4-8.2)
--- NOTE | 2020-10-07 15:17 | NUR ---
ATTEMPTED TO CONTACT DR MATT ABOUT FSBS AND DR SIERRA'S SUGGESTIONS ON INSULIN. NO ANSWER AT THIS TIME.
--- NOTE | 2020-10-07 15:46 | NUR ---
SPOKE TO DR MATT ABOUT FSBS AND CHANGING INSULIN ORDERS. AWAITING FOR NEW ORDERS.
--- NOTE | 2020-10-07 16:24 | NUR ---
PT PRONED AT THIS TIME. TOLERATED WELL. VSS.
--- NOTE | 2020-10-07 17:17 | NUR ---
PT AROUSES EASILY TO VERBAL STIMULI. PT DOES APPEAR TO PULL AGAINST RESTRAINTS BUT IS ABLE TO CALM DOWN WITH REASSURANCE OF SURROUNDINGS BY RN. VSS.
--- NOTE | 2020-10-07 17:28 | NUR ---
DR WALKER AT BEDSIDE FOR ASSESSMENT. NO NEW ORDERS.
--- NOTE | 2020-10-07 19:00 | NUR ---
Pt lifting head off pillow and moving side to side, eyes open. Pt called out by name, purposeful eye contact made - pt asked to confirm name and - pt nonverablly confirmed with head nod. Pt shook head "no" to pain, but nodded "yes" to being uncomfortable from the ETT. Sedation increased to attempt to achieve RASS goal per order. Pt reoriented to situation, time of day, day & month - pt shook head in understanding. 2000: pt repositined - RASS : 0 to -1 Will allow current increase in sedation time before increasing Fentanyl d/t BP sensitivity (see IV gtt Titrate documentation)
[2020-10-08] VITALS (800 sets, daily range): BP systolic 109–140; BP diastolic 51–77; PULSE 39–58; TEMP 97.5–99; O2SAT 84–100
--- NOTE | 2020-10-08 01:00 | NUR ---
ELLA Cleary notified of critical high Vancomycin trough level. Med was scanned but not initiated until lab level resulted - med discontinued
[2020-10-08 04:29] LABS: ARTERIAL BLD GAS O2 SATURATION 97.8 % (92-100); ARTERIAL BLD GAS TCO2 CT 20.1; ARTERIAL BLOOD GAS PCO2 35.4 mmHg (35-45); ARTERIAL BLOOD GAS PO2 113.4 mmHg (80-100); ARTERIAL BLOOD GAS pH 7.35 (7.35-7.45)
[2020-10-08 04:50] LABS: BASO % 0.1 % (0.0-2.0); EOS % 0.1 % (0-4.0); GRAN # 9.1 (1.4-6.5); GRAN % 88.1 % (42.2-75.2); LYMPH # 0.8 (1.2-3.4); LYMPH % 7.9 % (20.0-51.0); MEAN CELL VOLUME 93 fl (80.0-100.0); MEAN CORPUSCULAR HGB CONC 31 g/dl (33.0-37.0); MONO # 0.3 (0.1-0.6); MONO % 3.3 % (1.7-9.3); PLATELET COUNT 664 K/mm3 (130-400); RED BLOOD COUNT 2.85 M/mm3 (4.20-5.60); REDCELL DISTRIBUTION WIDTH-CV 18.9 % (11.5-14.5)
--- NOTE | 2020-10-08 04:51 | NUR ---
At current sedation pt able to open eyes on command, track, follows commands: moves all extremities with equal strength, able to nonverbally communicate no pain, pt does not wish to have television on.
[2020-10-08 04:52] LABS: HEMATOCRIT 26.5 % (42.0-52.0); HEMOGLOBIN 8.1 g/dl (13.5-18.0); MEAN CORPUSCULAR HEMOGLOBIN 28 pg (27.0-31.0)
[2020-10-08 05:04] LABS: CALCIUM 8.5 mg/dL (8.4-10.2); CREATININE, serum 1.45 (0.66-1.25); MAGNESIUM 2.8 mg/dL (1.6-2.3); PHOSPHOROUS 6.6 mg/dL (2.5-4.5)
--- NOTE | 2020-10-08 07:15 | NUR ---
REPORT RECEIVED FROM TIFFANY GONCALVES. PT IN PRONE POSITION. PT HAS FENT RUNNING AT 200MCG/HR. PROPOFOL AT 45MCG/KG/MIN. AND LEVOPHED RUNNING AT 0.04MCG/KG/MIN. WILL CONTINUE TO MONITOR.
--- NOTE | 2020-10-08 07:36 | NUR ---
PT DOCUMENTED SETTINGS NORAH WELL WITH NO DISTRESS NOTED
--- NOTE | 2020-10-08 13:06 | NUR ---
Darlene, Financial Counselor, sent the Release of Information and FAA forms to the patient's son, Corey, to sign. ROBB contacted Corey to follow up on whether he has signed the forms or not yet. Corey reports that he has signed the forms and gave them to his girlfriend's father to fax to Darlene. Corey reports that his girlfriend's father was having a hard time sending them though. ROBB contacted Darlene with financial counseling. Darlene reports that she has not received the forms yet. ROBB notified Corey and provided him with ROBB's email. ROBB received the signed forms, via email. ROBB notified and forwarded them to Darlene.
--- NOTE | 2020-10-08 17:00 | NUR ---
SEDATION DECREASED D/T BRADYCARDIA. PT OPENS EYES TO VOICE AND ABLE TO FOLLOW SOME COMMANDS. FURTHER SEDATION VACATION NOT COMPLETED D/T PT BEING IN PRONE POSITION.
--- NOTE | 2020-10-08 20:00 | NUR ---
Pt neuro assessment unchanged from yesterday. Pt easily awakens to noise/voice. Pt opens eyes, lifts head in an attempt to make eye contact. Pt follows commands, denies having pain or discomfort. Pt continuously attempting to bring downward positioned arm up, often causing that arm to be bent in angles that could lead to shoulder injury. Pt educated on imporance of neutral positioning of all extremities, pt nods head in agreement but frequently forgets and attempts to move arm again. Restraint tied in a way to help prevent this, with leaving room for circulation. Pt denies needs at this time.
[2020-10-09] VITALS (809 sets, daily range): BP systolic 92–127; BP diastolic 47–69; PULSE 49–69; TEMP 96–97.6; O2SAT 77–100
[2020-10-09 04:31] LABS: ARTERIAL BLD GAS O2 SATURATION 96.6 % (92-100); ARTERIAL BLD GAS TCO2 CT 21.4; ARTERIAL BLOOD GAS BASE EXCESS -5.3 (-2-2); ARTERIAL BLOOD GAS HCO3 20.2 meq/L (22-26); ARTERIAL BLOOD GAS PCO2 39.6 mmHg (35-45); ARTERIAL BLOOD GAS PO2 97.5 mmHg (80-100); ARTERIAL BLOOD GAS pH 7.33 (7.35-7.45)
[2020-10-09 04:57] LABS: BASO % 0.1 % (0.0-2.0); GRAN # 6.7 (1.4-6.5); GRAN % 86.6 % (42.2-75.2); LYMPH # 0.6 (1.2-3.4); LYMPH % 7.4 % (20.0-51.0); MEAN CELL VOLUME 92 fl (80.0-100.0); MEAN CORPUSCULAR HGB CONC 31 g/dl (33.0-37.0); MEAN PLATELET VOLUME 11.2 fl (7.4-10.4); MONO # 0.4 (0.1-0.6); MONO % 5.3 % (1.7-9.3); PLATELET COUNT 587 K/mm3 (130-400); RED BLOOD COUNT 2.84 M/mm3 (4.20-5.60); REDCELL DISTRIBUTION WIDTH-CV 18.7 % (11.5-14.5)
[2020-10-09 04:58] LABS: HEMATOCRIT 26.2 % (42.0-52.0); HEMOGLOBIN 8.2 g/dl (13.5-18.0); MEAN CORPUSCULAR HEMOGLOBIN 29 pg (27.0-31.0)
--- NOTE | 2020-10-09 05:10 | NUR ---
Pt remains prone - at current sedation level pt able to open eyes, follow commands and nod head yes or no to yes/no questions appropriately
--- NOTE | 2020-10-09 05:13 | NUR ---
Sutures dislodged on right radial artery line d/t pt movement. Tegaderm intact, dressing reinforced with tape. Line intact and stable
[2020-10-09 08:33] LABS: ALBUMIN 2.6 gm/dL (3.5-5.0); CALCIUM 8.3 mg/dL (8.4-10.2); CREATININE, serum 1.24 (0.66-1.25); POTASSIUM 3.7 mmol/L (3.4-5.0); TOTAL PROTEIN 6.3 gm/dL (6.4-8.2)
--- NOTE | 2020-10-09 11:28 | NUR ---
ETT PULLED BACK TO 25CM @ TEETH PER
--- NOTE | 2020-10-09 13:32 | NUR ---
SW met with patient's RN, who reports that ventilator settings have been turned down; however, patient remains on the ventilator. Social work will continue to follow as needs progress.
--- NOTE | 2020-10-09 18:08 | NUR ---
PATIENT MAXED OUT ON PROPOFOL AND FENTANYL AND IS RESTLESS PULLING ON HIS RESTRAINTS, ABLE TO FOLLOW SOME COMMANDS, NEED TO GIVE PRN VERSED.
--- NOTE | 2020-10-09 20:36 | NUR ---
[facility] physician notified OG tube residual 625mL. Orders to hold tube feed and water flushes now, give back half residual now, and recheck at midnight. Orders carried out. Abdomen soft and tender to pt with palpation
[2020-10-10] VITALS (385 sets, daily range): BP systolic 100–137; BP diastolic 40–70; PULSE 53–76; TEMP 96.7–100.9; O2SAT 69–100
--- NOTE | 2020-10-10 02:00 | NUR ---
Radial line dressing changed
[2020-10-10 04:40] LABS: ARTERIAL BLD GAS O2 SATURATION 95.6 % (92-100); ARTERIAL BLD GAS TCO2 CT 23.8; ARTERIAL BLOOD GAS BASE EXCESS -0.4 (-2-2); ARTERIAL BLOOD GAS HCO3 22.8 meq/L (22-26); ARTERIAL BLOOD GAS PO2 81.6 mmHg (80-100); ARTERIAL BLOOD GAS pH 7.49 (7.35-7.45)
[2020-10-10 04:45] LABS: BASO % 0.1 % (0.0-2.0); GRAN # 9.5 (1.4-6.5); GRAN % 87.3 % (42.2-75.2); LYMPH # 0.8 (1.2-3.4); LYMPH % 6.9 % (20.0-51.0); MEAN CELL VOLUME 94 fl (80.0-100.0); MEAN CORPUSCULAR HGB CONC 31 g/dl (33.0-37.0); MEAN PLATELET VOLUME 11.2 fl (7.4-10.4); MONO # 0.6 (0.1-0.6); MONO % 5.2 % (1.7-9.3); PLATELET COUNT 524 K/mm3 (130-400); RED BLOOD COUNT 2.82 M/mm3 (4.20-5.60)
[2020-10-10 04:50] LABS: HEMATOCRIT 26.4 % (42.0-52.0); HEMOGLOBIN 8.2 g/dl (13.5-18.0); MEAN CORPUSCULAR HEMOGLOBIN 29 pg (27.0-31.0)
[2020-10-10 04:56] LABS: CALCIUM 8.3 mg/dL (8.4-10.2); CREATININE, serum 1.31 (0.66-1.25); POTASSIUM 4.4 mmol/L (3.4-5.0)
--- NOTE | 2020-10-10 05:00 | NUR ---
At current sedation, at this time, RASS: 0 to +1, pt able to follow all commands, and use nonverbal communication.
[2020-10-10 06:24] LABS: 12 HR URINE TOTAL VOLUME 1.55 L
--- NOTE | 2020-10-10 11:30 | NUR ---
Dr. Corey at bedside. Will change sedation from propofol to versed and precedex. Also added reglan.
[2020-10-11] VITALS (767 sets, daily range): BP systolic 104–158; BP diastolic 42–73; PULSE 48–73; TEMP 96.8–99; O2SAT 77–100
[2020-10-11 02:35] LABS: ARTERIAL BLD GAS O2 SATURATION 92.4 % (92-100); ARTERIAL BLD GAS TCO2 CT 21.5; ARTERIAL BLOOD GAS BASE EXCESS -3.1 (-2-2); ARTERIAL BLOOD GAS HCO3 20.5 meq/L (22-26); ARTERIAL BLOOD GAS PCO2 31.3 mmHg (35-45); ARTERIAL BLOOD GAS PO2 67.7 mmHg (80-100); ARTERIAL BLOOD GAS pH 7.44 (7.35-7.45)
--- NOTE | 2020-10-11 04:30 | NUR ---
RASS:+1, pt able to follow commands at current sedation. Plan of care is to wean off sedation for breathing trial this morning
[2020-10-11 05:03] LABS: ARTERIAL BLD GAS O2 SATURATION 93.4 % (92-100); ARTERIAL BLD GAS TCO2 CT 23.8; ARTERIAL BLOOD GAS BASE EXCESS -2.1 (-2-2); ARTERIAL BLOOD GAS HCO3 22.6 meq/L (22-26); ARTERIAL BLOOD GAS PO2 72.4 mmHg (80-100); ARTERIAL BLOOD GAS pH 7.39 (7.35-7.45)
[2020-10-11 05:15] LABS: MEAN CELL VOLUME 93 fl (80.0-100.0); MEAN CORPUSCULAR HGB CONC 31 g/dl (33.0-37.0); MEAN PLATELET VOLUME 11.2 fl (7.4-10.4); RED BLOOD COUNT 2.89 M/mm3 (4.20-5.60); REDCELL DISTRIBUTION WIDTH-CV 19.1 % (11.5-14.5)
[2020-10-11 05:24] LABS: HEMOGLOBIN 8.3 g/dl (13.5-18.0); MEAN CORPUSCULAR HEMOGLOBIN 29 pg (27.0-31.0); PLATELET COUNT 382 K/mm3 (130-400)
[2020-10-11 05:25] LABS: ALBUMIN 2.7 gm/dL (3.5-5.0); BILIRUBIN,TOTAL 0.9 mg/dL (0.0-1.0); CALCIUM 8.2 mg/dL (8.4-10.2); CREATININE, serum 1.1 (0.66-1.25); MAGNESIUM 2.8 mg/dL (1.6-2.3); PHOSPHOROUS 4.2 mg/dL (2.5-4.5); POTASSIUM 4.7 mmol/L (3.4-5.0); TOTAL PROTEIN 6.5 gm/dL (6.4-8.2)
[2020-10-11 05:32] LABS: PRE ALBUMIN 32.6 mg/dL (17.6-36.0)
[2020-10-11 06:27] LABS: LYMPHOCYTE 7 % (20.0-51.0); METAMYELOCYTE 1 % (0-0); NEUTROPHILS 89 % (42.0-75.2); PLATELET ESTIMATE NORMAL (NORMAL)
[2020-10-11 06:28] LABS: ANISOCYTOSIS 3+; HYPOCHROMIA 3+
--- NOTE | 2020-10-11 08:31 | NUR ---
GURJIT LEFT JHOANA KNIGHT RN FOR CONSULT.
--- NOTE | 2020-10-11 10:39 | NUR ---
Vancomycin Follow-up Pharmacy Note Current regimen: Vancomycin 1.5 gm IV q12h Vancomycin trough: 23.59 Adjustments: Hold Vancomycin to allow trough level to clear and restart with Vancomycin 1.25 gm IV q12h. Pharmacy will continue to monitor and check a Vancomycin trough on 10/12/20.
--- NOTE | 2020-10-11 10:40 | NUR ---
Hand I Thermal Cutter contacted patient's son, Corey to reach out and introduce self. Corey commented that he feels he has been well updated by Dr. Corey. ROBB also faxed clinical updates to Edi akhtar [facility] who is following patient. ROBB will continue to follow.
--- NOTE | 2020-10-11 11:40 | NUR ---
Dr. Bell at bedside to assess pt.
--- NOTE | 2020-10-11 13:56 | NUR ---
Per Dr. Corey request, right radial arterial line removed. pressure held to site, bleeding controlled. dressing in place with date/time.
[2020-10-12] VITALS (838 sets, daily range): BP systolic 107–144; BP diastolic 60–88; PULSE 62–77; TEMP 98.7–99; O2SAT 90–100
[2020-10-12 05:08] LABS: ARTERIAL BLD GAS O2 SATURATION 88.9 % (92-100); ARTERIAL BLOOD GAS BASE EXCESS -0.7 (-2-2); ARTERIAL BLOOD GAS PCO2 39.7 mmHg (35-45); ARTERIAL BLOOD GAS PO2 59.7 mmHg (80-100)
[2020-10-12 05:23] LABS: MEAN CELL VOLUME 95 fl (80.0-100.0); MEAN CORPUSCULAR HGB CONC 30 g/dl (33.0-37.0); MEAN PLATELET VOLUME 11.9 fl (7.4-10.4); PLATELET COUNT 346 K/mm3 (130-400); RED BLOOD COUNT 2.56 M/mm3 (4.20-5.60); REDCELL DISTRIBUTION WIDTH-CV 19.2 % (11.5-14.5)
[2020-10-12 05:30] LABS: HEMATOCRIT 24.2 % (42.0-52.0); HEMOGLOBIN 7.3 g/dl (13.5-18.0); MEAN CORPUSCULAR HEMOGLOBIN 29 pg (27.0-31.0)
[2020-10-12 05:31] LABS: CALCIUM 7.9 mg/dL (8.4-10.2); CREATININE, serum 1.15 (0.66-1.25); POTASSIUM 4.3 mmol/L (3.4-5.0)
[2020-10-12 06:22] LABS: EOSINOPHIL 1 % (0-4); LYMPHOCYTE 11 % (20.0-51.0); NEUTROPHILS 82 % (42.0-75.2)
[2020-10-12 06:23] LABS: PLATELET ESTIMATE NORMAL (NORMAL)
[2020-10-12 06:24] LABS: ANISOCYTOSIS 3+; HYPOCHROMIA 3+
--- NOTE | 2020-10-12 10:10 | NUR ---
Political Theory Professor contacted Edi and confirmed he received updates. Patient's Medicaid is still pending and Edi will continue to follow.
[2020-10-12 14:50] LABS: HEMATOCRIT 25.4 % (42.0-52.0); HEMOGLOBIN 7.7 g/dl (13.5-18.0)
--- NOTE | 2020-10-12 15:09 | NUR ---
PT ON 30% FIO2. PT SPO2 89-91%. RT AT BEDSIDE. FIO2 INCREASED TO 35%. SPO2 INCREASED TO 95%.
--- NOTE | 2020-10-12 16:30 | NUR ---
NOTIFIED DR. MATT OF PT'S INCREASED GASTRIC RESIDUAL WITH ASSESSMENT. PT NOTED TO HAVE 85ML RESIDUAL AND HYPOACTIVE BOWEL SOUNDS. DURING AM ASSESSMENT, RESIDUAL OF 10ML AND MORE ACTIVE BOWEL SOUNDS. DR. MATT STATES TO HOLD TUBE FEEDINGS TONIGHT.
--- NOTE | 2020-10-12 17:30 | NUR ---
UPDATED PT'S SON PAOLA ON PLAN FOR SURGERY TOMORROW AT NOON. ALL QUESTIONS ANSWERED.
[2020-10-13] VITALS (477 sets, daily range): BP systolic 93–134; BP diastolic 57–81; PULSE 57–71; TEMP 97.5–98.4; O2SAT 89–100
--- NOTE | 2020-10-13 05:00 | NUR ---
CHG bath completed.
[2020-10-13 05:04] LABS: EOS % 0.1 % (0-4.0); GRAN # 7.3 (1.4-6.5); LYMPH # 0.6 (1.2-3.4); MEAN CELL VOLUME 98 fl (80.0-100.0); MEAN CORPUSCULAR HGB CONC 30 g/dl (33.0-37.0); MEAN PLATELET VOLUME 12.4 fl (7.4-10.4); MONO # 0.6 (0.1-0.6); MONO % 6.7 % (1.7-9.3); PLATELET COUNT 311 K/mm3 (130-400); RED BLOOD COUNT 2.43 M/mm3 (4.20-5.60); REDCELL DISTRIBUTION WIDTH-CV 19.7 % (11.5-14.5)
[2020-10-13 05:07] LABS: HEMATOCRIT 23.8 % (42.0-52.0); HEMOGLOBIN 7.1 g/dl (13.5-18.0); MEAN CORPUSCULAR HEMOGLOBIN 29 pg (27.0-31.0)
[2020-10-13 05:11] LABS: ARTERIAL BLD GAS O2 SATURATION 95.8 % (92-100); ARTERIAL BLD GAS TCO2 CT 27.3; ARTERIAL BLOOD GAS BASE EXCESS 1.4 (-2-2); ARTERIAL BLOOD GAS HCO3 26.1 meq/L (22-26); ARTERIAL BLOOD GAS PCO2 41.2 mmHg (35-45); ARTERIAL BLOOD GAS PO2 79.7 mmHg (80-100); ARTERIAL BLOOD GAS pH 7.42 (7.35-7.45)
[2020-10-13 05:13] LABS: ALBUMIN 2.4 gm/dL (3.5-5.0); BILIRUBIN,TOTAL 0.8 mg/dL (0.0-1.0); CREATININE, serum 1.16 (0.66-1.25); MAGNESIUM 2.5 mg/dL (1.6-2.3); PHOSPHOROUS 4.5 mg/dL (2.5-4.5); POTASSIUM 4.7 mmol/L (3.4-5.0); TOTAL PROTEIN 5.7 gm/dL (6.4-8.2)
[2020-10-13 05:20] LABS: PRE ALBUMIN 31.7 mg/dL (17.6-36.0)
--- NOTE | 2020-10-13 08:30 | NUR ---
Contacted by Dr. Garnett regarding this am chest x ray with PICC tip location in left subclavian vein. Dr. Corey informed. Patient rolled to right side and PICC power flushed with 40ml normal saline with good blood return noted. will repeat chest x ray around 10am.
--- NOTE | 2020-10-13 10:14 | NUR ---
reviewed chest x ray and tip location in lower SVC. primary care nurse informed.
--- NOTE | 2020-10-13 10:17 | NUR ---
Advertising Copy Writer attended clinincal rounds. Patient to have tracheotomy tube and PEG tube placement today.
--- NOTE | 2020-10-13 12:10 | NUR ---
PT TO OR WITH ANESTHESIA AND OR. SEDATION MEDICATIONS ON HOLD AT THIS TIME PER ANESTHESIA.
--- NOTE | 2020-10-13 13:15 | NUR ---
PT RETURN TO ROOM 2 WITH OR STAFF. RT YUSRA TO BEDSIDE TO ASSIST. PLACED ON VENTILATOR VIA TRACH. BEDSIDE REPORT RECEIVED. SEDATION MEDICATIONS RESUMED WITH NO CHANGES TO RATE. PT HAS ABDOMINAL BINDER IN PLACE. PT OPENS EYES TO VERBAL STIMULI. WILL CONTINUE TO MONITOR.
--- NOTE | 2020-10-13 14:20 | NUR ---
PT SHAKING HEAD BACK AND FORTH AND ATTEMPTING TO SIT UP IN BED. VERSED GTT INCREASED FROM 8ML/HR TO 9ML/HR. 5 MG BOLUS OF VERSED ADMINISTERED. WILL CONTINUE TO MONITOR.
--- NOTE | 2020-10-13 15:35 | NUR ---
Per Dr. Jose, pt okay to resume lovenox BID with 2100 dose tonight. requests to contact Dr. Arguello to also confirm resuming lovenox tonight from ENT standpoint. contacted Dr. Arguello and states lovenox may be given this evening. Dr. jose also states pt able to resume trickle tube feeding at 1700.
--- NOTE | 2020-10-13 17:45 | NUR ---
RESIDUAL CHECKED AT THIS TIME WITH SMALL AMOUNT OF GASTRIC CONTENT. PT RESTARTED ON TRICKLE TUBE FEEDING PER DR. WALKER AT THIS TIME. PT STARTING AMOUNT AT 10ML/HR WITH 30ML WATER FLUSHES Q6HR.
--- NOTE | 2020-10-13 19:00 | NUR ---
Order from MD Millie: okay to use PEG tube, tube feed orders recieved
[2020-10-14] VITALS (488 sets, daily range): BP systolic 94–146; BP diastolic 56–98; PULSE 63–88; TEMP 97.8–100.8; O2SAT 83–100
[2020-10-14 05:20] LABS: MEAN CELL VOLUME 98 fl (80.0-100.0); MEAN CORPUSCULAR HGB CONC 29 g/dl (33.0-37.0); MEAN PLATELET VOLUME 12.3 fl (7.4-10.4); PLATELET COUNT 304 K/mm3 (130-400)
[2020-10-14 05:32] LABS: CALCIUM 7.7 mg/dL (8.4-10.2); CREATININE, serum 1.25 (0.66-1.25); HEMATOCRIT 24.5 % (42.0-52.0); HEMOGLOBIN 7.2 g/dl (13.5-18.0); MEAN CORPUSCULAR HEMOGLOBIN 29 pg (27.0-31.0); POTASSIUM 4.9 mmol/L (3.4-5.0)
[2020-10-14 05:33] LABS: ARTERIAL BLD GAS O2 SATURATION 92.7 % (92-100); ARTERIAL BLD GAS TCO2 CT 23.2; ARTERIAL BLOOD GAS BASE EXCESS -2.3 (-2-2); ARTERIAL BLOOD GAS HCO3 22.1 meq/L (22-26); ARTERIAL BLOOD GAS PCO2 36.1 mmHg (35-45); ARTERIAL BLOOD GAS PO2 69.7 mmHg (80-100); ARTERIAL BLOOD GAS pH 7.41 (7.35-7.45)
[2020-10-14 05:58] LABS: HYPOCHROMIA 1+; LYMPHOCYTE 6 % (20.0-51.0); NEUTROPHILS 89 % (42.0-75.2)
[2020-10-14 05:59] LABS: ANISOCYTOSIS 1+; OVALOCYTES 1+; PLATELET ESTIMATE NORMAL (NORMAL); STOMATOCYTE 1+
--- NOTE | 2020-10-14 08:00 | NUR ---
Assessment complete and charted at this time. Patient repositioned. Excoriation present to buttocks. Patient precedex decreased per Dr. Corey with goal of discontining. Will monitor.
--- NOTE | 2020-10-14 09:48 | NUR ---
Per Dr. Corey- wean precedex off over current bag. More aggressive weaning required. Patient tolerating well at this time.
--- NOTE | 2020-10-14 13:33 | NUR ---
Picker Packer faxed clinical updates to [facility]. SW will continue to follow.
--- NOTE | 2020-10-14 14:44 | NUR ---
Patient given bed bath and linens changed.
--- NOTE | 2020-10-14 15:10 | NUR ---
Pharmacy, Femi, contacted with [facility] results
--- NOTE | 2020-10-14 19:00 | NUR ---
Received report from SACHA Andersen. Verified drips and vent settings at bedside. Patient alternating between drowsy and restless. Vitals within normal limits. Patient is tolerating trach and vent well. No further needs noted at this time.
--- NOTE | 2020-10-14 19:10 | NUR ---
Report given to SACHA Coe
[2020-10-15] VITALS (581 sets, daily range): BP systolic 112–139; BP diastolic 61–78; PULSE 70–80; TEMP 98.6–99.5; O2SAT 82–100
[2020-10-15 05:11] LABS: ARTERIAL BLD GAS O2 SATURATION 92.9 % (92-100); ARTERIAL BLD GAS TCO2 CT 24.9; ARTERIAL BLOOD GAS BASE EXCESS -1.4 (-2-2); ARTERIAL BLOOD GAS HCO3 23.7 meq/L (22-26); ARTERIAL BLOOD GAS PCO2 41.1 mmHg (35-45); ARTERIAL BLOOD GAS PO2 70.1 mmHg (80-100); ARTERIAL BLOOD GAS pH 7.38 (7.35-7.45)
[2020-10-15 05:20] LABS: EOS # 0.2 (0.0-0.7); EOS % 3.2 % (0-4.0); GRAN # 5.5 (1.4-6.5); GRAN % 72.5 % (42.2-75.2); LYMPH % 12.5 % (20.0-51.0); MEAN CELL VOLUME 99 fl (80.0-100.0); MEAN CORPUSCULAR HGB CONC 30 g/dl (33.0-37.0); MEAN PLATELET VOLUME 12.8 fl (7.4-10.4); MONO # 0.8 (0.1-0.6); MONO % 10.5 % (1.7-9.3); PLATELET COUNT 257 K/mm3 (130-400); RED BLOOD COUNT 2.53 M/mm3 (4.20-5.60); REDCELL DISTRIBUTION WIDTH-CV 20.7 % (11.5-14.5)
[2020-10-15 05:28] LABS: HEMATOCRIT 25.1 % (42.0-52.0); HEMOGLOBIN 7.6 g/dl (13.5-18.0); MEAN CORPUSCULAR HEMOGLOBIN 30 pg (27.0-31.0)
[2020-10-15 05:30] LABS: CALCIUM 7.7 mg/dL (8.4-10.2); CREATININE, serum 1.08 (0.66-1.25); MAGNESIUM 2.2 mg/dL (1.6-2.3); PHOSPHOROUS 3.7 mg/dL (2.5-4.5); POTASSIUM 3.8 mmol/L (3.4-5.0)
--- NOTE | 2020-10-15 09:30 | NUR ---
Patient assessment complete and charted. Patient awake with stimuli. Unable to track staff or follow directions. Per Dr. Corey cut sedation by 25% daily. Versed decreased. Will decrease fentanyl. Will continue to monitor.
--- NOTE | 2020-10-15 11:41 | NUR ---
Panelboard Assembler contacted Darlene with [employer] who advised there are no updates on Medicaid status. SW contacted Edi at [facility] and faxed updates.
--- NOTE | 2020-10-15 13:35 | NUR ---
Report given to SACHA Neri
--- NOTE | 2020-10-15 19:00 | NUR ---
Received report from SACHA Neri.
[2020-10-16] VITALS (683 sets, daily range): BP systolic 105–134; BP diastolic 60–89; PULSE 70–83; TEMP 97.3–99.5; O2SAT 75–100
[2020-10-16 04:41] LABS: ARTERIAL BLD GAS O2 SATURATION 93.6 % (92-100); ARTERIAL BLD GAS TCO2 CT 26.9; ARTERIAL BLOOD GAS BASE EXCESS 0.6 (-2-2); ARTERIAL BLOOD GAS HCO3 25.6 meq/L (22-26); ARTERIAL BLOOD GAS PCO2 43.1 mmHg (35-45); ARTERIAL BLOOD GAS PO2 70.4 mmHg (80-100); ARTERIAL BLOOD GAS pH 7.39 (7.35-7.45)
[2020-10-16 04:51] LABS: EOS # 0.4 (0.0-0.7); EOS % 5.8 % (0-4.0); GRAN # 4.5 (1.4-6.5); GRAN % 68.5 % (42.2-75.2); LYMPH # 0.9 (1.2-3.4); LYMPH % 14.3 % (20.0-51.0); MEAN CELL VOLUME 98 fl (80.0-100.0); MEAN CORPUSCULAR HGB CONC 30 g/dl (33.0-37.0); MEAN PLATELET VOLUME 12.2 fl (7.4-10.4); MONO # 0.7 (0.1-0.6); PLATELET COUNT 250 K/mm3 (130-400); RED BLOOD COUNT 2.48 M/mm3 (4.20-5.60)
[2020-10-16 04:53] LABS: HEMATOCRIT 24.2 % (42.0-52.0); HEMOGLOBIN 7.3 g/dl (13.5-18.0); MEAN CORPUSCULAR HEMOGLOBIN 29 pg (27.0-31.0)
--- NOTE | 2020-10-16 05:00 | NUR ---
Patient's urinary drainage bag and tubing heavily coated/stained with orange stone/sediment. Drainage bag and tubing changed at this time.
--- NOTE | 2020-10-16 05:00 | NUR ---
Patient restless/agitated prior to attempt of sedation vacation. Patient pulling at restraints and attempting to sit up in bed. No sedation vacation performed.
[2020-10-16 05:02] LABS: CALCIUM 7.7 mg/dL (8.4-10.2); CREATININE, serum 0.97 (0.66-1.25); POTASSIUM 3.8 mmol/L (3.4-5.0)
--- NOTE | 2020-10-16 08:00 | NUR ---
Shift reassessment complete at this time. Plan of care unable to be reviewed with patient r/t mentation. Vitals stable at this time. Bed in low position.
--- NOTE | 2020-10-16 12:00 | NUR ---
Shift reassessment complete at this time. No changes from previous assessment noted. Vitals stable. Sedation decreased by 1 titration per direction of Dr. Corey. Will continue to monitor.
--- NOTE | 2020-10-16 16:00 | NUR ---
Shift reassessment complete at this time. No changes from previous assessments noted. Vitals stable at this time. Bed in low position, will continue to monitor.
--- NOTE | 2020-10-16 19:12 | NUR ---
Received report from SACHA Reza.
[2020-10-17] VITALS (905 sets, daily range): BP systolic 107–132; BP diastolic 59–68; PULSE 72–86; TEMP 98.1–99.4; O2SAT 64–100
--- NOTE | 2020-10-17 | NUR ---
Midnight assessment complete. Patient continues to rest quietly in bed; tolerating ventilator well. Vitals within normal limits. Linens exchanged and patient repositioned. No further needs noted.
[2020-10-17 05:06] LABS: EOS # 0.4 (0.0-0.7); EOS % 4.7 % (0-4.0); GRAN # 5.1 (1.4-6.5); GRAN % 67.6 % (42.2-75.2); LYMPH # 1.2 (1.2-3.4); LYMPH % 16.1 % (20.0-51.0); MEAN CELL VOLUME 97 fl (80.0-100.0); MEAN CORPUSCULAR HGB CONC 30 g/dl (33.0-37.0); MEAN PLATELET VOLUME 12.8 fl (7.4-10.4); MONO # 0.7 (0.1-0.6); MONO % 9.9 % (1.7-9.3); PLATELET COUNT 241 K/mm3 (130-400); RED BLOOD COUNT 2.45 M/mm3 (4.20-5.60); REDCELL DISTRIBUTION WIDTH-CV 21.2 % (11.5-14.5)
[2020-10-17 05:08] LABS: ARTERIAL BLD GAS O2 SATURATION 93.1 % (92-100); ARTERIAL BLD GAS TCO2 CT 28.6; ARTERIAL BLOOD GAS BASE EXCESS 2.8 (-2-2); ARTERIAL BLOOD GAS HCO3 27.3 meq/L (22-26); ARTERIAL BLOOD GAS PCO2 41.9 mmHg (35-45); ARTERIAL BLOOD GAS PO2 66.8 mmHg (80-100); ARTERIAL BLOOD GAS pH 7.43 (7.35-7.45)
[2020-10-17 05:08] LABS: HEMATOCRIT 23.8 % (42.0-52.0); HEMOGLOBIN 7.2 g/dl (13.5-18.0); MEAN CORPUSCULAR HEMOGLOBIN 29 pg (27.0-31.0)
[2020-10-17 05:22] LABS: CALCIUM 7.8 mg/dL (8.4-10.2); CREATININE, serum 0.86 (0.66-1.25); POTASSIUM 3.6 mmol/L (3.4-5.0)
--- NOTE | 2020-10-17 07:00 | NUR ---
RECEIVED REPORT FROM SACHA ALVARADO. PT RESTING EASILY ON CURRENT VENT SETTINGS: TV 500, PEEP 5, FIO2 40, RR 22. TF INFUSING AT 55ML/HR IN PEG TUBE. DRILLING RIG OPERATOR IN PLACE. FC PATENT AND DRAINING TO GRAVITY. VSS. SEE GTT FLOWSHEET.
--- NOTE | 2020-10-17 19:15 | NUR ---
Received report from SACHA John. Patient alert although not following verbal commands or tracking with eyes. Appears slightly restless in bed; dozes intermittently. Vitals within normal limits. All pumps verified at bedside and patient repositioned. No further needs noted at this time.
--- NOTE | 2020-10-17 21:27 | NUR ---
CHRISTIANO RN CALLED ABOUT LARGE AUDIBLE LEAK WITH TRACH RT INSTILLED 5CC AIR INTO CUFF AND PLACED BLUE IV HUB ON CUFF BALLOON CUFF IS HYPERINFLATED TO 45MMHG NURSE NOTIFIED RT TO MONITOR LEAK CLOSELY
[2020-10-18] VITALS (742 sets, daily range): BP systolic 113–163; BP diastolic 64–100; PULSE 68–92; TEMP 98–99.2; O2SAT 77–100
[2020-10-18 05:34] LABS: ARTERIAL BLD GAS O2 SATURATION 95.5 % (92-100); ARTERIAL BLD GAS TCO2 CT 30.2; ARTERIAL BLOOD GAS BASE EXCESS 5.3 (-2-2); ARTERIAL BLOOD GAS PCO2 38.9 mmHg (35-45); ARTERIAL BLOOD GAS PO2 74.3 mmHg (80-100); ARTERIAL BLOOD GAS pH 7.49 (7.35-7.45)
[2020-10-18 05:36] LABS: ALBUMIN 2.5 gm/dL (3.5-5.0); BILIRUBIN,TOTAL 0.8 mg/dL (0.0-1.0); CREATININE, serum 0.83 (0.66-1.25); MAGNESIUM 1.8 mg/dL (1.6-2.3); PHOSPHOROUS 3.2 mg/dL (2.5-4.5); POTASSIUM 3.6 mmol/L (3.4-5.0); TOTAL PROTEIN 5.4 gm/dL (6.4-8.2)
[2020-10-18 05:43] LABS: PRE ALBUMIN 19.7 mg/dL (17.6-36.0)
[2020-10-18 06:48] LABS: BASO % 0.1 % (0.0-2.0); EOS # 0.3 (0.0-0.7); EOS % 4.1 % (0-4.0); GRAN % 66.3 % (42.2-75.2); LYMPH # 1.4 (1.2-3.4); LYMPH % 18.9 % (20.0-51.0); MEAN CELL VOLUME 97 fl (80.0-100.0); MEAN CORPUSCULAR HGB CONC 31 g/dl (33.0-37.0); MEAN PLATELET VOLUME 13.4 fl (7.4-10.4); MONO # 0.7 (0.1-0.6); MONO % 9.1 % (1.7-9.3); PLATELET COUNT 253 K/mm3 (130-400); RED BLOOD COUNT 2.46 M/mm3 (4.20-5.60)
[2020-10-18 07:36] LABS: HEMATOCRIT 23.8 % (42.0-52.0); HEMOGLOBIN 7.3 g/dl (13.5-18.0); MEAN CORPUSCULAR HEMOGLOBIN 30 pg (27.0-31.0)
--- NOTE | 2020-10-18 07:43 | NUR ---
Report given to SACHA Alvarado.
--- NOTE | 2020-10-18 11:58 | NUR ---
SW update: Completed follow up with adrianna, spoke with Edi, who reports the insurance is still not active, Waiting in Medicaid.
--- NOTE | 2020-10-18 19:05 | NUR ---
Report received from Jenny GONCALVES. Pt resting in bed at this time with IV sedation/ pain medications infusing. Pumps checked. Pt on ventilator with trach. Verified settings with RT who is at bedside at this time.
[2020-10-19] VITALS (687 sets, daily range): BP systolic 123–138; BP diastolic 66–92; PULSE 77–92; TEMP 97.9–99.4; O2SAT 73–100
[2020-10-19 05:39] LABS: BASO % 0.1 % (0.0-2.0); EOS # 0.2 (0.0-0.7); EOS % 2.7 % (0-4.0); GRAN # 6.2 (1.4-6.5); GRAN % 68.8 % (42.2-75.2); LYMPH # 1.8 (1.2-3.4); LYMPH % 19.4 % (20.0-51.0); MEAN CELL VOLUME 95 fl (80.0-100.0); MEAN CORPUSCULAR HGB CONC 31 g/dl (33.0-37.0); MEAN PLATELET VOLUME 12.5 fl (7.4-10.4); MONO # 0.7 (0.1-0.6); MONO % 7.9 % (1.7-9.3); PLATELET COUNT 234 K/mm3 (130-400); RED BLOOD COUNT 2.62 M/mm3 (4.20-5.60); REDCELL DISTRIBUTION WIDTH-CV 20.5 % (11.5-14.5)
[2020-10-19 05:47] LABS: HEMOGLOBIN 7.8 g/dl (13.5-18.0); MEAN CORPUSCULAR HEMOGLOBIN 30 pg (27.0-31.0)
[2020-10-19 05:48] LABS: CALCIUM 8.2 mg/dL (8.4-10.2); CREATININE, serum 0.9 (0.66-1.25); POTASSIUM 3.5 mmol/L (3.4-5.0)
--- NOTE | 2020-10-19 07:00 | NUR ---
Report provided to Jenny Lucero RN.
--- NOTE | 2020-10-19 10:00 | NUR ---
PT TAKEN OFF VENT TO HEATED T-TUBE TRIAL PER . PT AWAKE AND ALERT.
--- NOTE | 2020-10-19 10:55 | NUR ---
[facility] states they will need patient's signature of medicaid application and or guardian appointed if unable. benzene worker collaborated with patient's nurse and patient will be evaluated later this afternoon to see if he can respond and communicate. A psychiatric eval was to be ordered. Worker will begin guardianship process if needed. Worker faxed updates to [facility] and spoke with Edi regarding the above information.
--- NOTE | 2020-10-19 13:17 | NUR ---
playground worker and patient's nurse met with patient and advised of need for signatures on the medicaid application. Patient nodded his head "yes" as he understood the medicaid insurance application.
--- NOTE | 2020-10-19 20:38 | NUR ---
rt called to room for desat on tc rt sterile sx for thick secretions that were gavin in color and looked to be stomach contents the patient at that time started to vomit nurse called to room at bedside cuff is reinflated and patient is placed back on the vent continue to sx what looks like stomach feed from trach let nurse know to possibly ask for xray d/t to suspected aspiration rt will continie to monitor patient carefully
--- NOTE | 2020-10-19 21:57 | NUR ---
Right after shift change the patient desated to 89. I went to check on him and called Respiratory for a possible mucus plug. Respiratory suctioned him and he started vomiting. We cleaned him up and I called Jenny COVARRUBIAS to order an Xray. Patient is comfortable and Oxygen saturation is back to 98, since immediately after the incident. I just called Xray to see if they recieved the order and they said they'll come as soon as they can.
[2020-10-20] VITALS (91 sets, daily range): BP systolic 163; BP diastolic 91; PULSE 85; TEMP 98.4; O2SAT 81–99
--- NOTE | 2020-10-20 19:00 | NUR ---
Received report from SACHA John. Patient alert and resting quietly in bed watching television. Following verbal commands and compliant with nursing cares. All vitals within normal limits. Denies any pain or discomfort. Patient assisted with oral cares. No further needs noted.
[2020-10-21] VITALS (636 sets, daily range): BP systolic 129–154; BP diastolic 77–92; PULSE 78–99; TEMP 97.8–99.2; O2SAT 65–100
[2020-10-21 02:46] LABS: ARTERIAL BLD GAS O2 SATURATION 96.6 % (92-100); ARTERIAL BLOOD GAS BASE EXCESS 5.4 (-2-2); ARTERIAL BLOOD GAS PCO2 38.6 mmHg (35-45); ARTERIAL BLOOD GAS PO2 84.7 mmHg (80-100); ARTERIAL BLOOD GAS pH 7.49 (7.35-7.45)
[2020-10-21 05:43] LABS: BASO % 0.1 % (0.0-2.0); EOS # 0.2 (0.0-0.7); EOS % 1.9 % (0-4.0); GRAN # 6.7 (1.4-6.5); GRAN % 74.7 % (42.2-75.2); LYMPH # 1.3 (1.2-3.4); MEAN CELL VOLUME 96 fl (80.0-100.0); MEAN CORPUSCULAR HGB CONC 31 g/dl (33.0-37.0); MONO # 0.7 (0.1-0.6); MONO % 7.6 % (1.7-9.3); PLATELET COUNT 202 K/mm3 (130-400); RED BLOOD COUNT 2.44 M/mm3 (4.20-5.60); REDCELL DISTRIBUTION WIDTH-CV 20.5 % (11.5-14.5)
[2020-10-21 05:45] LABS: HEMATOCRIT 23.3 % (42.0-52.0); HEMOGLOBIN 7.2 g/dl (13.5-18.0); MEAN CORPUSCULAR HEMOGLOBIN 30 pg (27.0-31.0)
[2020-10-21 05:46] LABS: ARTERIAL BLOOD GAS PCO2 35.7 mmHg (35-45); ARTERIAL BLOOD GAS pH 7.49 (7.35-7.45)
[2020-10-21 05:47] LABS: ARTERIAL BLD GAS O2 SATURATION 93.5 % (92-100); ARTERIAL BLOOD GAS BASE EXCESS 3.1 (-2-2); ARTERIAL BLOOD GAS HCO3 26.4 meq/L (22-26); ARTERIAL BLOOD GAS PO2 64.5 mmHg (80-100)
[2020-10-21 05:54] LABS: CALCIUM 7.8 mg/dL (8.4-10.2); CREATININE, serum 0.81 (0.66-1.25); POTASSIUM 3.8 mmol/L (3.4-5.0)
--- NOTE | 2020-10-21 07:20 | NUR ---
Report received from Angelica GONCALVES. Pt resting in bed with television on at this time. RT entered the room at approximately [id number].
--- NOTE | 2020-10-21 12:02 | NUR ---
Round Boner contacted Edi at [facility] who advised he is following however cannot process patient until his Medicaid is approved. Medicaid is still pending. ROBB will continue to follow.
--- NOTE | 2020-10-21 15:00 | NUR ---
Tube feed tubing and bottle changed. Increased rate to 63ml/ hr per updated dietary order.
[2020-10-21 15:32] LABS: CALCIUM 8.2 mg/dL (8.4-10.2); CREATININE, serum 0.79 (0.66-1.25); POTASSIUM 3.7 mmol/L (3.4-5.0)
--- NOTE | 2020-10-21 18:55 | NUR ---
Report provided to Alexandru GONCALVES. Pt resting in bed with TV on.
[2020-10-22] VITALS (799 sets, daily range): BP systolic 115–147; BP diastolic 71–87; PULSE 78–87; TEMP 97.8–99; O2SAT 46–100
[2020-10-22 00:12] LABS: BASO % 0.2 % (0.0-2.0); EOS % 0.8 % (0-4.0); GRAN % 79.3 % (42.2-75.2); HEMATOCRIT 24.6 % (42.0-52.0); HEMOGLOBIN 7.5 g/dl (13.5-18.0); LYMPH % 11.4 % (20.0-51.0); MEAN CELL VOLUME 97 fl (80.0-100.0); MEAN CORPUSCULAR HEMOGLOBIN 29 pg (27.0-31.0); MEAN CORPUSCULAR HGB CONC 31 g/dl (33.0-37.0); MEAN PLATELET VOLUME 12.9 fl (7.4-10.4); MONO % 7.6 % (1.7-9.3); PLATELET COUNT 179 K/mm3 (130-400); RED BLOOD COUNT 2.55 M/mm3 (4.20-5.60); REDCELL DISTRIBUTION WIDTH-CV 20.4 % (11.5-14.5)
[2020-10-22 00:13] LABS: EOS # 0.1 (0.0-0.7); GRAN # 8.6 (1.4-6.5); LYMPH # 1.2 (1.2-3.4); MONO # 0.8 (0.1-0.6)
[2020-10-22 05:36] LABS: ARTERIAL BLD GAS O2 SATURATION 93.5 % (92-100); ARTERIAL BLD GAS TCO2 CT 27.6; ARTERIAL BLOOD GAS BASE EXCESS 2.8 (-2-2); ARTERIAL BLOOD GAS HCO3 26.5 meq/L (22-26); ARTERIAL BLOOD GAS PCO2 36.5 mmHg (35-45); ARTERIAL BLOOD GAS PO2 67.2 mmHg (80-100); ARTERIAL BLOOD GAS pH 7.48 (7.35-7.45)
--- NOTE | 2020-10-22 07:00 | NUR ---
REPORT RECEIVED FROM TIFFANY GONCALVES. PT ON CPAP MODE THRU TRACH. PT RESTING. WILL CONTINUE TO MONITOR.
--- NOTE | 2020-10-22 09:40 | NUR ---
SUTURES FROM TRACH REMOVED PER . RT BEDSIDE AND GAUZE APPLIED UNDER TRACH COLLAR. WILL CONTINUE TO MONITOR.
--- NOTE | 2020-10-22 11:17 | NUR ---
PT PLACED ON TRACH COLLAR AT 40% BY RT. WILL CONTINUE TO MONITOR.
--- NOTE | 2020-10-22 12:23 | NUR ---
PT ON TRACH COLLAR AT THIS TIME. NO DISTRESS NOTED
--- NOTE | 2020-10-22 12:24 | NUR ---
PT ON TRACH COLLAR AT THIS TIME, NO DISTRESS NOTED
--- NOTE | 2020-10-22 13:52 | NUR ---
PT ON TRACH COLLAR AT THIS TIME
--- NOTE | 2020-10-22 22:00 | NUR ---
Assisted with bedbath and linen change. Patient awake and alert following commands appropriately. VS stable. Call light left within reach; will continue to monitor.
[2020-10-23] VITALS (593 sets, daily range): BP systolic 121–156; BP diastolic 62–89; PULSE 78–85; TEMP 98.5–98.9; O2SAT 46–100
[2020-10-23 00:42] LABS: CLOSTRIDIUM DIFF A/B NEG; CLOSTRIDIUM DIFF A/B INTERP No C.diff present
[2020-10-23 04:42] LABS: BASO % 0.2 % (0.0-2.0); EOS # 0.2 (0.0-0.7); EOS % 2.1 % (0-4.0); GRAN # 7.1 (1.4-6.5); GRAN % 74.1 % (42.2-75.2); LYMPH # 1.6 (1.2-3.4); LYMPH % 16.5 % (20.0-51.0); MEAN CELL VOLUME 98 fl (80.0-100.0); MEAN CORPUSCULAR HGB CONC 31 g/dl (33.0-37.0); MEAN PLATELET VOLUME 11.7 fl (7.4-10.4); MONO # 0.6 (0.1-0.6); MONO % 6.6 % (1.7-9.3); PLATELET COUNT 195 K/mm3 (130-400); RED BLOOD COUNT 2.55 M/mm3 (4.20-5.60); REDCELL DISTRIBUTION WIDTH-CV 19.9 % (11.5-14.5)
[2020-10-23 04:45] LABS: HEMATOCRIT 24.9 % (42.0-52.0); HEMOGLOBIN 7.6 g/dl (13.5-18.0); MEAN CORPUSCULAR HEMOGLOBIN 30 pg (27.0-31.0)
[2020-10-23 05:05] LABS: CALCIUM 7.9 mg/dL (8.4-10.2); CREATININE, serum 0.73 (0.66-1.25); POTASSIUM 3.8 mmol/L (3.4-5.0)
--- NOTE | 2020-10-23 06:03 | NUR ---
Pt was able to tolerate 35% trach collar through the entire shift last night. Ventilator on standby at bedside.
--- NOTE | 2020-10-23 08:00 | NUR ---
Shift assessment complete at this time. Plan of care reviewed at bedside with patient. Additional time taken to address any other needs or concerns. Vitals stable at this time. Denies pain or any other discomforts. Bed in low position, call light within reach.
--- NOTE | 2020-10-23 12:00 | NUR ---
Shift reassessment complete at this time. No changes from previous assessment noted. Vitals stable at this time. Denies pain or any other discomfort. Bed in low position, call light within reach.
--- NOTE | 2020-10-23 16:00 | NUR ---
Shift reassessment complete at this time. No changes from previous assessments noted. Vitals stable at this time. Denies pain or any other discomforts. Bed in low position, call light within reach. will continue to monitor.
--- NOTE | 2020-10-23 20:00 | NUR ---
Patient anxious and wrote to this nurse that he is "having a panic attack" and "I can't sit here any longer". PRN medication for anxiety administered. Assisted up with 2 assist to the recliner. Patient reported feeling more comfortable and anxiety much reduced after getting up. Resting comfortably in recliner at this time. Call light within reach; will continue to monitor.
[2020-10-24] VITALS (637 sets, daily range): BP systolic 111–146; BP diastolic 68–89; PULSE 80–93; TEMP 97.7–99.1; O2SAT 82–100
--- NOTE | 2020-10-24 02:58 | NUR ---
Currently resting in bed with eyes shut. Requested tylenol for a headache and right ear pain. No redness or drainage noted in ear. No complaints reported otherwise. VS stable; will continue to monitor.
[2020-10-24 05:17] LABS: BASO % 0.4 % (0.0-2.0); EOS # 0.3 (0.0-0.7); EOS % 3.8 % (0-4.0); GRAN # 5.2 (1.4-6.5); GRAN % 66.1 % (42.2-75.2); LYMPH # 1.8 (1.2-3.4); LYMPH % 22.8 % (20.0-51.0); MEAN CELL VOLUME 98 fl (80.0-100.0); MEAN CORPUSCULAR HGB CONC 30 g/dl (33.0-37.0); MEAN PLATELET VOLUME 11.4 fl (7.4-10.4); MONO # 0.5 (0.1-0.6); MONO % 6.4 % (1.7-9.3); PLATELET COUNT 193 K/mm3 (130-400); RED BLOOD COUNT 2.64 M/mm3 (4.20-5.60); REDCELL DISTRIBUTION WIDTH-CV 19.7 % (11.5-14.5)
[2020-10-24 05:18] LABS: HEMATOCRIT 25.9 % (42.0-52.0); HEMOGLOBIN 7.8 g/dl (13.5-18.0); MEAN CORPUSCULAR HEMOGLOBIN 30 pg (27.0-31.0)
[2020-10-24 05:28] LABS: CALCIUM 8.1 mg/dL (8.4-10.2); CREATININE, serum 0.7 (0.66-1.25); POTASSIUM 4.1 mmol/L (3.4-5.0)
--- NOTE | 2020-10-24 07:15 | NUR ---
Report given to SACHA Ledesma. Patient care transfered.
--- NOTE | 2020-10-24 16:30 | NUR ---
RECTAL TUBE DISCONTINUED AT THIS TIME PER DR. MATT ORDER.
--- NOTE | 2020-10-24 17:00 | NUR ---
SPOKE WITH PT'S SON PAOLA AND PROVIDED UPDATE WITH PLAN TO TRANSFER PT TO MEDICAL FLOOR. STATES HE WOULD LIKE TO SPEAK WITH A PHYSICIAN ABOUT PLAN OF CARE. NOTIFIED DR. MATT AND HE HAS NOW SPOKEN WITH SON PAOLA. REPORT CALLED TO MEDICAL INFORMATION OFFICER STELLA. PT TRANSFERRED TO ROOM 345 VIA MEDICAL BED X2 RN. PT TRANSFERRED ON 4L VIA TRACH COLLAR. TELEMETRY IN PLACE PER ORDER. PT ALERT ON TRANSFER. STELLA RN TO BEDSIDE ON ARRIVAL AND RESPIRATORY THERAPIST YOANNA TO ASSIST WITH PT.
--- NOTE | 2020-10-24 17:30 | NUR ---
Pt just arrived to the floor from ICU. He is alert, trach, kinsey to dependent drainage, peg tube clamped. Narda with RT at bedside suctioning patient.
--- NOTE | 2020-10-24 18:13 | NUR ---
Pt has asked to be suctioned several times since arriving to the floor. He has been suctions with yanker x3 and deep suctioned x1. RT notified of increase in need. Pt reported feeling anxiety attack. PRN given. Tube feeding hooked up.
--- NOTE | 2020-10-24 19:40 | NUR ---
RECEIVED CHANGE OF SHIFT REPORT FROM DAY SHIFT NURSE. TELE IN PLACE. PICC LINE IN PLACE.
--- NOTE | 2020-10-24 20:00 | NUR ---
PATIENT VERY ANXIOUS, REPEATEDLY USING CALL LIGHT TO HAVE RESPIRATORY CALLED FOR TRACH SUCTIONING. OBSERVED PATIENT WITH COUGH AND ABLE TO EXPECTORATE SMALL AMOUNT OF THIN WHITE MUCUS, ENCOURAGING PATIENT TO WIPE OFF EXPECTORATED TRACH MUCUS WITH TISSURE OR USE YAUNKER TIP SUCTIONING TO REMOVE MUCUS. PATIENT USING CLIP BOARD WITH PAPERS TO WRITE ON FOR COMMUNICATING WITH STAFF. STEVE IN PLACE. TELE IN PLACE. PICC SITE INTACT TO RIGHT UPPER ARM.
--- NOTE | 2020-10-24 23:56 | NUR ---
PATIENT REPORTS HIS THROAT IS FULL OF PHLEGM, EXPECTORATED VIA TRACH TUBE SMALL AMOUNT THIN/STRINGY WHITISH MUCUS. WANTING XANAX, SEE MAR FOR MED GIVEN.
[2020-10-25 01:02] VITALS: BP 128/72; PULSE 79; TEMP 98.5
[2020-10-25 04:37] VITALS: BP 131/68; PULSE 77; TEMP 97.9
[2020-10-25 06:28] LABS: ALBUMIN 2.7 gm/dL (3.5-5.0); BILIRUBIN,TOTAL 0.6 mg/dL (0.0-1.0); CALCIUM 8.2 mg/dL (8.4-10.2); CREATININE, serum 0.74 (0.66-1.25); POTASSIUM 4.2 mmol/L (3.4-5.0)
--- NOTE | 2020-10-25 07:06 | NUR ---
CHANGE OF SHIFT REPORT GIVEN TO DAY SHIFT NURSE, CRUZ GONCALVES.
[2020-10-25 08:08] VITALS: BP 128/66; PULSE 81; TEMP 98.8
--- NOTE | 2020-10-25 08:26 | NUR ---
PT RESTING IN BED AT BEDSIDE SHIFT REPORT. SCANT AMT OF THIN WHITE MUCUS SUCTIONED FROM TRACH OPENING, ENCOURAGED PT TO COUGH IT UP. PT REPORTED DISCOMFORT WITH BOTTOM, [place] SAW[place]ER[place] CDI. PT REPOSITIONED FREQUENTLY. PT REPORTED DOING FINE OTHERWISE. SCDS ON AND BED ALARM ON.
[2020-10-25 11:54] VITALS: BP 116/67; PULSE 84; TEMP 97.5
--- NOTE | 2020-10-25 15:38 | NUR ---
Director Of Distribution followed up with Darlene Financial Counselor who advised she will contact [facility] for an update.
--- NOTE | 2020-10-25 15:40 | NUR ---
Pt doing well at this time. Respiratory deflated the trach cuff and patient tolerated well. He is able to talk some, but is not able to project much volume. He continues to use the marker board for communication. No pain complaints, states he is a little anxious. Call light within reach, will continue to monitor
[2020-10-25 16:00] VITALS: BP 150/76; PULSE 87; TEMP 98.2
--- NOTE | 2020-10-25 16:06 | NUR ---
PT REPORTED HEADACHE THIS AM AND RECEIEVED PRN APAP. PT LATER C/O ANXIETY AND HEADACHE AND RECEIVED PRN NORCO WHICH HELPED CALM HIM AND RELIEVE HEADACHE. PT HAS BEEN REPOSITIONED FREQUENTLY AND RECEIEVED ORAL SWABS WITH COLD WATER FREQUENTLY. RT WAS ABLE TO TOLERATE TRACH CUFF DEFLATED AND ST ASSESSED ABILITY TO SWALLOW ICE CHIPS WHICH IS OKAY NOW. WILL DO FULL SWALLOW STUDY ON 10/27.
--- NOTE | 2020-10-25 16:10 | NUR ---
REPORT GIVEN TO STELLA BORJAS AT 1515, RN TAKING OVER ROGE'S CARE AT THIS TIME.
--- NOTE | 2020-10-25 18:39 | NUR ---
Pt has continued to do well with trach cuff deflated. He is tolerating ice chips. He asked if he could have food, which I explained he would have to have a speech evaluation first. Pt did get up to the commode x2 max assist. He had a hard time standing straight up, but was able to stay slouched holding on to the commode. He did have a bowel movement while on the commode.
--- NOTE | 2020-10-25 19:35 | NUR ---
Bedside report completed, patient is awake, alert, oriented, trach collar in place, respiratory status - stable, telemetry in use, continous tube feeding ongoing - tolerating well. Call cullen w/i reach, close to nurse's station.
[2020-10-25 20:41] VITALS: BP 122/61; PULSE 79; TEMP 98
[2020-10-26 00:05] VITALS: BP 124/60; PULSE 94; TEMP 98.1
[2020-10-26 05:18] VITALS: BP 117/70; PULSE 80; TEMP 97.6
[2020-10-26 07:19] VITALS: BP 152/81; PULSE 84; TEMP 99.2
[2020-10-26 08:42] LABS: BASO % 0.2 % (0.0-2.0); EOS # 0.4 (0.0-0.7); EOS % 4.1 % (0-4.0); GRAN # 6.4 (1.4-6.5); GRAN % 71.3 % (42.2-75.2); LYMPH # 1.7 (1.2-3.4); LYMPH % 18.6 % (20.0-51.0); MEAN CELL VOLUME 94 fl (80.0-100.0); MEAN CORPUSCULAR HEMOGLOBIN 30 pg (27.0-31.0); MEAN CORPUSCULAR HGB CONC 32 g/dl (33.0-37.0); MONO # 0.5 (0.1-0.6); MONO % 5.5 % (1.7-9.3); PLATELET COUNT 173 K/mm3 (130-400); RED BLOOD COUNT 2.33 M/mm3 (4.20-5.60)
[2020-10-26 08:53] LABS: ALBUMIN 2.9 gm/dL (3.5-5.0); BILIRUBIN,TOTAL 0.7 mg/dL (0.0-1.0); CALCIUM 8.4 mg/dL (8.4-10.2); CREATININE, serum 0.69 (0.66-1.25); POTASSIUM 4.1 mmol/L (3.4-5.0); TOTAL PROTEIN 6.1 gm/dL (6.4-8.2)
[2020-10-26 11:29] VITALS: BP 112/63; PULSE 91; TEMP 97.8
--- NOTE | 2020-10-26 13:34 | NUR ---
PT'S TRACH CAPPED AT THIS TIME. TOLERATING WELL.
[2020-10-26] MEDS ORDERED: PACERONE400 MG PO (13:36)
[2020-10-26] MEDS ORDERED: SEROQUEL 200MG200 MG PO (13:36)
[2020-10-26] MEDS ORDERED: ELIQUIS 5MG PO (13:36)
[2020-10-26] MEDS ORDERED: IPRATROPIUM BROM3 M1 IH (13:36)
[2020-10-26] MEDS ORDERED: VANCOCIN HCL1 GM IV (13:36)
[2020-10-26] MEDS ORDERED: LEADER CLE17 GM/Dose PO (13:36)
[2020-10-26] MEDS ORDERED: ALBUTEROL0.83 MG/ML IH (13:36)
[2020-10-26] MEDS ORDERED: NIRAVAM0.5 MG PO (13:36)
[2020-10-26] MEDS ORDERED: NORCO 325 MG-51 TAB PO (13:36)
[2020-10-26] MEDS ORDERED: NICODERM C21 MG/PATC TD (13:36)
[2020-10-26] MEDS ORDERED: NOVLOG SQ (13:36)
--- NOTE | 2020-10-26 16:28 | NUR ---
PT HAS HAD A GOOD DAY. ALL MEDS GIVEN PER PEG. PAIN CONTROLLED WITH MEDS THROUGH PEG TUBE. CONTINUOUS FEEDING AT THIS TIME. STAGE 2 WOUND TO COCCYX. PT WORKED WITH PT AND ST TODAY. TRACH CAPPED BY RT THIS AM. PT TOLERATING WELL.
--- NOTE | 2020-10-26 17:00 | NUR ---
REPORT TO WHIT GONCALVES IPR. TRANSFER TO [facility] AT THIS TIME.
[2020-10-26] MEDS ORDERED: PROTONIX 40MG T40 MG PO (17:48)
== END 2020-10-26 17:02 | DRG 4 ==
LOC: IMCU 16:22 → ICU 20:07 → SURG 10-24 17:18 → ICU 10-24 17:18 → SURG 10-24 23:00
PROVIDERS: Hospitalist; Internal Medicine Adult Congenital Heart Disease; Internal Medicine Critical Care Medicine; Internal Medicine Gastroenterology; Internal Medicine Nephrology; Internal Medicine Pulmonary Disease; Internal Medicine Sleep Medicine; Physician Assistant; Student in an Organized Health Care Education/Training Program; Surgery; ADMIT Internal Medicine
PROC: 0BH17EZ Insertion of Endotracheal Airway into Trachea, Via Natural or Artificial Opening (ICD-10-PCS; principal; 2020-09-24)
PROC: 5A1945Z Respiratory Ventilation, 24-96 Consecutive Hours (ICD-10-PCS; 2020-09-24)
PROC: 02HV33Z Insertion of Infusion Device into Superior Vena Cava, Percutaneous Approach (ICD-10-PCS; 2020-09-28)
PROC: 0DH63UZ Insertion of Feeding Device into Stomach, Percutaneous Approach (ICD-10-PCS; 2020-10-13)
PROC: 0B113F4 Bypass Trachea to Cutaneous with Tracheostomy Device, Percutaneous Approach (ICD-10-PCS; 2020-10-13 12:00)
DX: A41.9 Sepsis, unspecified organism (principal); R65.21 Severe sepsis with septic shock; J96.01 Acute respiratory failure with hypoxia; E87.0 Hyperosmolality and hypernatremia; E87.1 Hypo-osmolality and hyponatremia; K81.0 Acute cholecystitis; I38 Endocarditis, valve unspecified; I82.890 Acute embolism and thrombosis of other specified veins; E87.3 Alkalosis; K91.89 Other postprocedural complications and disorders of digestive system; I37.8 Other nonrheumatic pulmonary valve disorders; F32.9 Major depressive disorder, single episode, unspecified; F41.9 Anxiety disorder, unspecified; E87.6 Hypokalemia; F17.210 Nicotine dependence, cigarettes, uncomplicated; Z20.822 Contact with and (suspected) exposure to COVID-19; I95.9 Hypotension, unspecified; F10.10 Alcohol abuse, uncomplicated; I48.0 Paroxysmal atrial fibrillation; I27.20 Pulmonary hypertension, unspecified; E80.6 Other disorders of bilirubin metabolism; S30.1XXA Contusion of abdominal wall, initial encounter; Y83.8 Other surgical procedures as the cause of abnormal reaction of the patient, or of later complication, without mention of misadventure at the time of the procedure; Z86.14 Personal history of Methicillin resistant Staphylococcus aureus infection; R73.9 Hyperglycemia, unspecified; T38.0X5A Adverse effect of glucocorticoids and synthetic analogues, initial encounter
CPT/HCPCS: 99223-AI; 99232-AI; 99233-AI; 99239; A4217; C1751; C9113; J0282; J0610; J0696; J1120; J1450; J1644; J1650; J1815; J1940; J2060; J2185; J2250; J2405; J2704; J2765; J2920; J2930; J2997; J3010; J3370; J3411; J3475; J3480; J7040; J7050; J7060; J7120; J7131; J7512; P9016; P9047; Q9967

== ENCOUNTER 2020-10-26 14:48 | Inpatient (IN) | payer MEDICAID ==
[~2020-10-26] VITALS: Ht 190.5 cm; Wt 76.5 kg
[~2020-10-26 14:48] MED LIST changes: +ALBUTEROL0.83 MG/ML IH; +COZAAR 25MG25 MG/TAB PO; +ELIQUIS 5MG PO; +IPRATROPIUM BROM3 M1 IH; +LEADER CLE17 GM/Dose PO; +MOBIC15 MG PO; +NEXIUM 20MG20 MG PO; +NICODERM C21 MG/PATC TD; +NIRAVAM0.5 MG PO; +NORCO 325 MG-51 TAB PO; +NOVLOG SQ; +PACERONE400 MG PO; +PROZAC40 MG PO; +SEROQUEL 200MG200 MG PO; +VANCOCIN HCL1 GM IV
--- NOTE | 2020-10-26 17:05 | NUR ---
Received report from SACHA Shelley with the following: Patient is NPO; VTE is Eliquis; 3 assist with transfers; ON 2L NC; TRACH was capped today; NO KNOWN DRUG ALLERGIES; A&OX4; Last BM was 10/26/20; Brunner catheter in place; PICC to ALBINA; is on MERCA precautions and continues on Vancomycin Q 6 hours; Has peg tube in place and receiving continues feeding; Blood sugars Q 6 hours; open area with MERCA to the stomach that is scabbed over and is black in color - area is left CLINICAL APPEALS AUDITOR.
[2020-10-26 17:44] VITALS: BP 178/76; PULSE 85; TEMP 98.1
[2020-10-26] MEDS ORDERED: PROTONIX 40MG T40 MG PO (17:48)
--- NOTE | 2020-10-26 19:30 | NUR ---
RECEIVED CHANGE OF SHIFT REPORT FROM DAY SHIFT NURSE. BED ALARM ON.
[2020-10-26 19:48] VITALS: BP 152/79; PULSE 83; TEMP 97.9
[2020-10-26 19:51] VITALS: BP 152/79; PULSE 83; TEMP 97.9
--- NOTE | 2020-10-26 20:39 | NUR ---
Patient resting in bed, call light in reach and bed alarm set. Patient was given prn anxiety meds this evening and tolerated well. He has been eating ice chips, but this has been causing him to cough tonight. Patient was educated on the need to continue to sit up at 90 degrees to be able to eat the ice chips. Staff assisted him to an upright position again. He likes to slip down in bed. Will continue to monitor. Patient currently on 2 L NC at this time. Reported off to night nurse.
--- NOTE | 2020-10-27 03:33 | NUR ---
PATIENT STATES HE HAS BEEN REFUSING NICOTINE PATCH AND DOES NOT WANT MED OFFERED. ASKING IF HE CAN HAVE COVID VACCINE WHILE IN REHAB. SEE MAR FOR MED GIVEN TO C/O HEADACHE AND EAR PAIN
[2020-10-27 05:41] VITALS: BP 129/67; PULSE 80; TEMP 98.2
--- NOTE | 2020-10-27 07:28 | NUR ---
CHANGE OF SHIFT REPORT GIVEN TO DAY SHIFT NURSECRUZ.
[2020-10-27 07:45] VITALS: BP 138/74
--- NOTE | 2020-10-27 09:36 | NUR ---
PT C/O OF HEADACHE THIS AM WELL ANXIETY, STATED HE WAS GOING TO HAVE A PANIC ATTACK. IT WAS TOO SOON FOR HIS XANAX TO BE GIVEN SO PRN NORCO WAS GIVEN AND PT STATED IT HELPED HIM CALM DOWN.
--- NOTE | 2020-10-27 16:19 | NUR ---
Weigh Box Tender met with patient to complete intake as patient is new to [facility]. SW also provided copy of team conference notes. Patient will be re-evaluated next week for a potential discharge date. Patient lives alone in [place] and has two sons, Corey (ph#[phone]) and Alphonse (ph#[phone]). Patient sees MIGUELANGEL Broderick at [facility] and obtains medications from [facility]. Patient is currently Medicaid Pending and Darlene Financial Counselor assisted patient in submitting an application. Patient does not have any DME and reports he is normally independent with ADLS. Patient is interested in completing DPOA-HC paperwork while he is here, SW will follow up. SW contacted patient's son, Corey to provide update. Corey reports he will be here tomorrow to visit patient.
[2020-10-27 18:11] VITALS: BP 128/72; PULSE 86; TEMP 98.7
--- NOTE | 2020-10-27 18:26 | NUR ---
PT HAS RECEIEVED PRN NORCO TWICE AND XANAX ONCE THIS SHIFT. STATES HE IS HAVING PANIC ATTACK 3-4 TIMES DURING THIS SHIFT. REPORTS HEADACHE OFTEN AND BACK PAIN. PT REFUSES NICOTINE PATCH. PT'S DIET ADVANCED TO MECH SOFT TODAY AND TOLERATING FLUIDS WELL, EATING VERY LITTLE WITH LUNCH AND DINNER MEALS. TUBE FEEDINGS CONTINUED 24 HOUR CONTINUOUS FEEDS. TUBING AND FEEDING CHANGED OUT AROUND 1545 TODAY. PT SCORED HIGH ON SUICIDE RISK DUE TO IT ASKING WITHIN 3 MONTHS. PSYCH CONSULT WAS ALREADY REQUESTED. DR. RUSSELL DOES NOT FEEL PT IS AN ACTIVE SUICIDE RISK AND SUPERVISORS WERE NOTIFIED. PT IS NOT ON 15 MINUTE OBSERVATIONS FOR THIS REASON.
--- NOTE | 2020-10-27 19:10 | NUR ---
RECEIVED CHANGE OF SHIFT REPORT FROM DAY SHIFT NURSE.
--- NOTE | 2020-10-27 20:00 | NUR ---
PICC LINE IN PLACE, TF CONTINUES ORDERED TO PEG TUBE WITH NO COMPLAINTS FROM PATIENT. DENIES CHEST PAIN/SOA/NAUSEA AT THIS TIME. STEVE CONTINUES TO DEPENDENT DRAINAGE OF CLEAR YELLOW URINE. PATIENT NOT WEARING OXYGEN AT THIS TIME WITH SAT CHECKED AT 90 TO 91 PERCENT, RT AWARE. SEE eMAR FOR MEDS GIVEN
[2020-10-28 04:55] VITALS: BP 147/82; PULSE 88; TEMP 97.5
[2020-10-28 14:07] LABS: BASO % 0.2 % (0.0-2.0); EOS # 0.3 (0.0-0.7); EOS % 3.6 % (0-4.0); GRAN # 6.2 (1.4-6.5); GRAN % 70.8 % (42.2-75.2); LYMPH # 1.6 (1.2-3.4); LYMPH % 18.7 % (20.0-51.0); MEAN CELL VOLUME 97 fl (80.0-100.0); MEAN CORPUSCULAR HGB CONC 31 g/dl (33.0-37.0); MEAN PLATELET VOLUME 10.9 fl (7.4-10.4); MONO # 0.6 (0.1-0.6); MONO % 6.4 % (1.7-9.3); PLATELET COUNT 160 K/mm3 (130-400); RED BLOOD COUNT 2.78 M/mm3 (4.20-5.60); REDCELL DISTRIBUTION WIDTH-CV 18.6 % (11.5-14.5)
[2020-10-28 14:08] LABS: HEMOGLOBIN 8.4 g/dl (13.5-18.0); MEAN CORPUSCULAR HEMOGLOBIN 30 pg (27.0-31.0)
[2020-10-28 14:24] LABS: CALCIUM 8.6 mg/dL (8.4-10.2); CREATININE, serum 0.72 (0.66-1.25); POTASSIUM 4.5 mmol/L (3.4-5.0)
[2020-10-28 15:50] VITALS: BP 121/76; PULSE 86; TEMP 97.7
[2020-10-28 16:07] LABS: ARTERIAL BLD GAS O2 SATURATION 94.8 % (92-100); ARTERIAL BLD GAS TCO2 CT 25.8; ARTERIAL BLOOD GAS BASE EXCESS 0.7 (-2-2); ARTERIAL BLOOD GAS HCO3 24.6 meq/L (22-26); ARTERIAL BLOOD GAS PCO2 36.7 mmHg (35-45); ARTERIAL BLOOD GAS pH 7.45 (7.35-7.45)
--- NOTE | 2020-10-28 20:19 | NUR ---
Patient attended all therapies this shift. Patient reported having shortness of breath this morning and afternoon. He was found to have his nasal cannula in his nose inproperly multiple times this shift. His oxygen was in the upper 90's with oxygen at 2 L NC. Patient was found eating his breakfast food while lying down in bed this morning. This nurse placed patient up in a 90 degree sitting position and educated patient on the need to continue to be in an upright position to be able to drink or eat to prevent asperation pneumonia. Patient voiced understanding. Will continue to monitor. Both of patient's PICC Line ports had cathflow applied to them. The red one was not able to get blood return and the purple one was difficult to flush. Following the cathflow this nurse was able to get good blood return and able to flush both lines easily. Patient received his flu shot this morning in his left deltoid and tolerated it well. Patient continues on a mechanical soft diet and thin liquids along with continues Jevity tube feeding. Patient received approval to have the feeding stopped during his therapies. He received his Vancomycin this morning and tolerated well. Patient's catheter remains in place and he has been having good urinary output. Reported off to night nurse.
--- NOTE | 2020-10-28 20:30 | NUR ---
Patient's son Corey requested to be updated on his dad's cares. See new nursing order to call Corey if patient has any major changes in condition, room changes, or tests that are going to be done.
--- NOTE | 2020-10-28 21:00 | NUR ---
PT RESTING IN BED. A&OX4. PT C/O DYSPNEIC. AUDIBLE WHEEZING. O2 SAT 99% ON 2L O2 N/C. TRACH CAPPED. NOTIFIED RT OF NEED FOR RT TX. PT ABLE TO TAKE HS PILLS ONE AT A TIME WITH WATER. NO CHOKING. HOB UP 90 DEGREES. CONTACT ISOLATION CONTINUES FOR MRSA. STEVE DRAINING LG AMT OF CLEAR DILUTE URINE. BATCH UNIT TREATER REPORTED CATH CARE COMPLETED. SCD'S ON AT THIS TIME. CALL LIGHT IN REACH. BED ALARM SET.
[2020-10-29 06:14] VITALS: BP 131/72; PULSE 80; TEMP 98
[2020-10-29 06:48] LABS: BASO % 0.3 % (0.0-2.0); EOS # 0.3 (0.0-0.7); GRAN # 4.4 (1.4-6.5); GRAN % 64.8 % (42.2-75.2); LYMPH # 1.5 (1.2-3.4); LYMPH % 21.5 % (20.0-51.0); MEAN CELL VOLUME 99 fl (80.0-100.0); MEAN CORPUSCULAR HGB CONC 30 g/dl (33.0-37.0); MEAN PLATELET VOLUME 11.4 fl (7.4-10.4); MONO # 0.6 (0.1-0.6); MONO % 8.1 % (1.7-9.3); PLATELET COUNT 165 K/mm3 (130-400); RED BLOOD COUNT 2.64 M/mm3 (4.20-5.60); REDCELL DISTRIBUTION WIDTH-CV 18.7 % (11.5-14.5)
[2020-10-29 07:01] LABS: HEMOGLOBIN 7.8 g/dl (13.5-18.0); MEAN CORPUSCULAR HEMOGLOBIN 30 pg (27.0-31.0)
[2020-10-29 07:05] LABS: ALBUMIN 2.9 gm/dL (3.5-5.0); BILIRUBIN,TOTAL 0.5 mg/dL (0.0-1.0); CALCIUM 8.6 mg/dL (8.4-10.2); CREATININE, serum 0.72 (0.66-1.25); MAGNESIUM 1.9 mg/dL (1.6-2.3); POTASSIUM 4.2 mmol/L (3.4-5.0); TOTAL PROTEIN 6.3 gm/dL (6.4-8.2)
--- NOTE | 2020-10-29 12:24 | NUR ---
PATIENT REQUESTING BREATHING TREATMENT. WHEEZES AUDIBLE. PATIENT GIVEN PRN XANAX FOR ANXIETY AT THIS TIME. RT CALLED, WILL SEE PATIENT FIRST.
--- NOTE | 2020-10-29 14:16 | NUR ---
Admission QIM scores were reviewed by the team. Code of 5 chosen for eating was determined by team discussion to be the most usual performance for this patient during the assessment period. Code of 3 chosen for toilet hygiene was determined by team discussion to be the most usual performance for this patient during the assessment period. Code of 2 for sit to stand was determined by team discussion to be the most usual performance for this patient during the assessment period. Code of 2 for chair/bed to chair transfers was determined by team discussion to be the most usual performance for this patient during the assessment period.--Judy Hwang, PD
--- NOTE | 2020-10-29 15:59 | NUR ---
Master Technician contacted patient's son, Corey to schedule patient's family meeting for Sunday at 1300.
[2020-10-29 16:34] VITALS: BP 135/72; PULSE 81; TEMP 98.4
--- NOTE | 2020-10-29 17:10 | NUR ---
PATIENT PRESSURE DRESSINGS CHANGED AT THIS TIME. PATIENT REPORTING SEVERE ITCHING ON HIS CHEST AND BACK. PATIENT HAS NEW RASH ACROSS CHEST, FULL BACK AND FACIAL FLUSHING. NO OTHER ADVERSE REACTIONS NOTED. [employer] CALLED AND NOTIFIED. THIS NURSE SPOKE WITH PHARMACY. ORDERS TO GIVE BENADRYL AND CONTINUE WITH SCHEDULED EVENING IV VANCOMYCIN DOSE, CONTINUE TO MONITOR FOR ANY REACTIONS WITH NEXT DOSE. IF REACTIONS OCCUR, CONTACT PHYSICIAN LINUX SYSTEM ADMINISTRATOR.
--- NOTE | 2020-10-29 19:32 | NUR ---
PATIENT GIVEN PRN ANXIETY AND PAIN MEDICATIONS NEEDED THROUGHOUT THE SHIFT. PATIENT CURRENTLY RESTING IN BED. CALL LIGHT IN REACH. PATIENT DENIES ANY NEES AT THIS TIME. BEDSIDE REPORT GIVEN TO SACHA DIXON.
--- NOTE | 2020-10-29 20:30 | NUR ---
PT SITTING UP IN BED. SLID DOWN TO BOTTOM BUT COMFORTABLE FOR HIM. REMINDED HE NEEDED 90 DEGREE TO DRINK AND EAT. PT AGREES. TAKING PILLS WHOLE W/O DIFFICULTY. JEVITY CONTINUES INFUSING AT 63CC/HR TO PEG. LG DRIED SCAB TO ABD WOUND- NO REDNESS OR DRG. CONTINUES RECEIVING VANCOMYCIN. PT HAS NO ITCHING AT PRESENT TIME. TRACH CAPPED. NO DISTRESS. RT JUST FINISHED SVN TX. NO NEEDS AT THIS TIME. CALL LIGHT IN REACH. BED ALARM SET. CONTACT ISOLATION CONTINUES FOR MRSA.
[2020-10-30 05:08] VITALS: BP 118/72; PULSE 89; TEMP 97.4
--- NOTE | 2020-10-30 08:17 | NUR ---
PT ASSISTED TO BATHROOM AT BEDSIDE SHIFT REPORT. PT DENIES PAIN AT THIS TIME. DRSG TO COCCYX IS CDI AND PT VOIDED CLEAR YELLOW URINE.
--- NOTE | 2020-10-30 08:20 | NUR ---
PT REPORTED SOB AT BEDSIDE SHIFT REPORT. PT'S NC WAS NOT IN HIS NOSE AND PT WAS LAYING FLAT. HOB ELEVATED AND NC PLACED PROPERLY. PT ALSO WHEEZING SO RT WAS NOTIFIED AND BREATHING TREATMENT ADMINISTERED.
[2020-10-30 16:43] VITALS: BP 131/76; PULSE 83; TEMP 98
--- NOTE | 2020-10-30 17:48 | NUR ---
DISCUSSED WITH PT WAYS OF COPING WITH ANXIETY OTHER THEN MEDICATION. PT RECEIVED PRN XANAX ONCE THIS SHIFT AND REQUESTED IT LATER BUT IT WAS TOO SOON TO GIVE. SPOKE WITH PT ABOUT PETS AND HOMELIFE TO DISTRACT. ALLEVYN DRSG CHANGED TO COCCYX, S2 PRESSURE INJURY NOTED TO MID COCCYX, BELIEVE THIS TO BE A NEW INJURY. OTHER S2 TO BOTH BUTTOCKS HEALING. BARRIER OINTMENT AND DRSG PLACED. MEPILEX TO S2 ON HIP IS CDI. TUBE FEEDING CHANGED OUT JUST PRIOR TO SHIFT CHANGE AND BOLUS PROTEIN GIVEN. PT IS STILL NOT EATING MUCH WITH MEALS. DID RECEIVE PRN APAP FOR HEADACHE AND NECK PAIN. OT MASSAGE THIS AREA, AND BP WAS CHECKED PRIOR TO ADMINISTRATION FOR HEADACHE. CUSHIONS TO NC PLACED BEHIND EARS, LUBRICATION TO NARES, AND HUMIDITY PLACED ON NC.
--- NOTE | 2020-10-30 21:00 | NUR ---
PT RESTING IN BED. SON HERE EARLIER. VERY SUPPORTIVE. REMIND PT HOB NEEDS ELEVATES AT LEAST 30 DEGREES D/I POSS ASPIRATION WITH TF. O2 2LNC W/ HUMIDITY. PT REPORTS NOSE IS SORE FROM CANNULA. OFFERED OXYMASK. DECLINES. PT MOVES NC OUT OF PLACE FREQ. TOOK HS PILLS WHOLE WITH H20 2 AT ATIME. NO CHOKING. OFFERED SNACK- DECLINED. F/C DRAINING WELL CLEAR YELLOW URINE. SEE MAR FOR PAIN & ANXIETY MEDS GIVEN. PT REMAIN IN CONTACT ISOLATION FOR MRSA. CALL LIGHT IN REACH. BED ALARM SET.
--- NOTE | 2020-10-30 22:20 | NUR ---
PT C/O ITCHING. RED RASH TO TORSO NOTED. SEE MAR FOR BENADRYL GIVEN. PT ANXIOUS. SEE MAR FOR XANAX GIVEN.
[2020-10-31 05:11] VITALS: BP 124/69; PULSE 87; TEMP 97.7
[2020-10-31 06:39] LABS: BASO % 0.2 % (0.0-2.0); EOS # 0.4 (0.0-0.7); GRAN # 3.5 (1.4-6.5); GRAN % 59.2 % (42.2-75.2); LYMPH # 1.5 (1.2-3.4); LYMPH % 24.9 % (20.0-51.0); MEAN CELL VOLUME 97 fl (80.0-100.0); MEAN CORPUSCULAR HGB CONC 31 g/dl (33.0-37.0); MEAN PLATELET VOLUME 10.8 fl (7.4-10.4); MONO # 0.6 (0.1-0.6); MONO % 9.5 % (1.7-9.3); PLATELET COUNT 147 K/mm3 (130-400); RED BLOOD COUNT 2.52 M/mm3 (4.20-5.60); REDCELL DISTRIBUTION WIDTH-CV 18.4 % (11.5-14.5)
[2020-10-31 06:44] LABS: ALBUMIN 3.1 gm/dL (3.5-5.0); BILIRUBIN,TOTAL 0.5 mg/dL (0.0-1.0); CALCIUM 8.8 mg/dL (8.4-10.2); CREATININE, serum 0.71 (0.66-1.25); POTASSIUM 3.8 mmol/L (3.4-5.0); TOTAL PROTEIN 6.4 gm/dL (6.4-8.2)
[2020-10-31 06:55] LABS: HEMATOCRIT 24.5 % (42.0-52.0); HEMOGLOBIN 7.6 g/dl (13.5-18.0); MEAN CORPUSCULAR HEMOGLOBIN 30 pg (27.0-31.0)
--- NOTE | 2020-10-31 11:20 | NUR ---
PT SLEEPING IN BED AT BEDSIDE SHIFT REPORT. REPORTED HEADACHE THIS AM AND RECEIVED PRN APAP. PT REQUESTED XANAX LATER AND IT WAS TOO SOON, THIS NURSE ASSISTED PT TO GO ON WALK TO [facility] AND GET SNACKS OUT OF THE VENDING MACHINE. PT STATES HE IS SORE IN HIS CALVES THIS AM, DID HAVE SCD'S ON OVER NIGHT, BELEIVES IT IS SORE FROM THERAPY.
[2020-10-31 15:53] VITALS: BP 123/69; PULSE 80; TEMP 98.2
--- NOTE | 2020-10-31 17:42 | NUR ---
PT RECEIEVED PRN APAP THIS AM AND PRN XANAX TWICE THIS SHIFT. PT WAS ASSISTED TO AND AND WHEELED SELF DOWN THE HALLWAY AND WAS ROLLED OUT TO [facility] FOR SHORT TIME THIS AM. PT NOT EATING MUCH PO, CONTINUING PEG TUBE FEEDS CONTINUOUSLY. BAG AND TUBING CHANGED Q24 HOURS.
--- NOTE | 2020-10-31 21:11 | NUR ---
PT VERY ANXIOUS TONIGHT. TOO SOON FOR XANAX. RELATES TRACH TIE IS MAKING HIM CLAUSTROPHOBIC. WANTS IT OFF. NOTIFIED RT. PT IS VERY FRUSTRATED. WANTS THE TRACH OUT. PT ABLE TO COUGH CLEAR THIN SECRETIONS FROM AIRWAY. GAVE NORCO EARLIER FOR H/A AND NECK PAIN FROM THE PRESSURE OF THE TRACH SECURE TIE. DECLINED WARM OR ICE PACK. CONTINUED MRSA ISOLATION. O2 AT 2L NC. HE NEEDS CUED TO PUT IT BACK IN NOSE OFTEN. CALL LIGHT IN REACH. BED ALARM SET.
[2020-11-01 05:43] VITALS: BP 101/62; PULSE 82; TEMP 97.6
[2020-11-01 06:26] LABS: BASO % 0.4 % (0.0-2.0); EOS # 0.3 (0.0-0.7); EOS % 5.7 % (0-4.0); GRAN # 2.9 (1.4-6.5); GRAN % 50.9 % (42.2-75.2); LYMPH # 1.8 (1.2-3.4); LYMPH % 31.5 % (20.0-51.0); MEAN CELL VOLUME 97 fl (80.0-100.0); MEAN CORPUSCULAR HGB CONC 31 g/dl (33.0-37.0); MEAN PLATELET VOLUME 11.3 fl (7.4-10.4); MONO # 0.6 (0.1-0.6); MONO % 11.3 % (1.7-9.3); PLATELET COUNT 184 K/mm3 (130-400); RED BLOOD COUNT 2.58 M/mm3 (4.20-5.60); REDCELL DISTRIBUTION WIDTH-CV 18.1 % (11.5-14.5)
[2020-11-01 06:34] LABS: HEMATOCRIT 24.9 % (42.0-52.0); HEMOGLOBIN 7.6 g/dl (13.5-18.0); MEAN CORPUSCULAR HEMOGLOBIN 29 pg (27.0-31.0)
[2020-11-01 06:35] LABS: ALBUMIN 3.1 gm/dL (3.5-5.0); BILIRUBIN,TOTAL 0.5 mg/dL (0.0-1.0); CALCIUM 8.6 mg/dL (8.4-10.2); CREATININE, serum 0.72 (0.66-1.25); TOTAL PROTEIN 6.5 gm/dL (6.4-8.2)
[2020-11-01 15:52] VITALS: BP 142/72; PULSE 92; TEMP 97.7
--- NOTE | 2020-11-01 16:23 | NUR ---
Supervisor Metal Hanging met with patient to follow up after weekend. SW advised patient that family meeting was scheduled for Sunday at 1300. Patient is in agreement and has no questions at this time.
--- NOTE | 2020-11-01 19:29 | NUR ---
Dressing changed to bottom with the following measurements: 0.3 x 0.5 oblong; 1.5 cm x 0.5 cm irregular shape; 1.5 x 0.5 cm irregular shape.
--- NOTE | 2020-11-01 19:58 | NUR ---
RECEIVED CHANGE OF SHIFT REPORT FROM DAY SHIFT NURSE. BED ALARM ON.
--- NOTE | 2020-11-01 20:00 | NUR ---
DENIES CHEST PAIN/NAUSEA. REQUESTING RT TREATMENT, RT INFORMED OF PATIENT REQUEST. STEVE IN PLACE & DRAINING WELL. PICC LINE IN PLACE. BED ALARM ON WHILE IN BED. FAMILY MEMBER IN ROOM.
--- NOTE | 2020-11-01 20:21 | NUR ---
Patient attended all therapies this shift. Jevity tube feeding during the day was DC'd and patient now receives it from 10 pm to 6 am. See orders for specifics. Patient was seen by Dr. Hartmann today see new orders. Dr. Zheng gave orders for trach to be removed tomorrow. Patient was notified of this change. Q 6 Hour accuchecks were DC'd per Dr. Hartmann this morning. Patient continues to eat his meals on a regular basis. Will continue to monitor. Patient's son stopped by to visit this evening. He celebrated his dads birthday with him. Son Corey would like to get a call from about where his dad's Medicare/Medicaid is at now. This was communicated to shift stacker.
[2020-11-02 06:14] VITALS: BP 118/70; PULSE 83; TEMP 98
--- NOTE | 2020-11-02 07:27 | NUR ---
CHANGE OF SHIFT REPORT GIVEN TO DAY SHIFT NURSE, CRUZ GONCALVES.
--- NOTE | 2020-11-02 08:33 | NUR ---
PT RESTING IN BED AT BEDSIDE SHIFT REPORT. REPORTS HAVING A BAD DAY, NOT SPECIFIC ABOUT WHY. SLEPT WELL. REFUSED BREAKFAST OR ASSISTANCE GETTING READY PRIOR TO THERAPY.
--- NOTE | 2020-11-02 09:32 | NUR ---
Plaster Caster contacted patient's son, Corey to reschedule family meeting for a little after 1330 tomorrow. SW advised Corey that we may run a few minutes behind. Corey inquired about patient's Medicaid. ROBB contacted Darlene, Financial Counselor to see if there were any updates.
[2020-11-02 16:50] VITALS: BP 127/68; PULSE 87; TEMP 98.8
--- NOTE | 2020-11-02 19:18 | NUR ---
RECEIVED CHANGE OF SHIFT REPORT FROM DAY SHIFT NURSE.
--- NOTE | 2020-11-02 19:18 | NUR ---
TRACHEOSTOMY REMOVED BY DR. CARMONA TODAY. VORB TO APPLY TEGDERM TO 2X2 GAUZE AFTER REMOVAL. SANGUINEOUS DRAINAGE NOTED THIS EVENING. PT RECEIEVED JOEL HERNDON AND RECEIEVED MALTONIN EARLY THIS EVENING. PT REQUESTING SOMETHING TO TURN HIS BRAIN OFF AND HELP HIM SLEEP. PT ENCOURAGED TO UTILIZE ANXIETY TECHNIQUES DISCUSSED PREVIOUSLY AND PT REFUSES. PT ENCOURAGED TO GO ON A WALK WITH STAFF TO GET ENERGY OUT AND PT REFUSES.
--- NOTE | 2020-11-02 21:00 | NUR ---
PATIENT DENIES ANY NEEDS AT THIS TIME. REPORTS HE FELT NAUSEA EARLIER AND VOMITED, DENIES NAUSEA AT THIS TIME, DENIES CHEST PAIN/SOA AT THIS TIME. OXYGEN OFF, ON ROOM AIR. RESPIRATIONS NONLABORED AN EVEN. PEG TUBE CLAMPED/INPLACE. IV ABX INFUSING PER PICC LINE WITH NO PROBLEMS BED ALARM ON WHEN IN BED. STEVE CATHETER IN PLACE AND DRAINING WITH NO PROBLEMS.
--- NOTE | 2020-11-03 02:25 | NUR ---
REQUESTED AND GIVEN WARM BLANKET AFTER COMPLAINING OF FEELING COLD. DENIED ANY OTHER NEEDS AT THIS TIME.
[2020-11-03 04:57] VITALS: BP 111/81; PULSE 87; TEMP 97.5
--- NOTE | 2020-11-03 07:21 | NUR ---
CHANGE OF SHIFT REPORT GIVEN TO DAY SHIFT NURSE, TROY GONCALVES. BED ALARM ON WHILE IN BED.
--- NOTE | 2020-11-03 15:30 | NUR ---
Brunner catheter discontinued. 7ml of saline removed from catheter balloon. Patient tolerated procedure well. He stated he has some prostated issues so he has had a catheter before. Explained to use urinal when he goes because we'll need to see it. No complaints of nausea or pain. His son is at bedside. He is working on drinking his ensure but has not been eating much today. He stated nothing tastes good. No other changes at this time. Call light within reach.
[2020-11-03 16:51] VITALS: BP 145/79; PULSE 82; TEMP 98.4
--- NOTE | 2020-11-03 16:58 | NUR ---
Belt And Link Shop Supervisor participated in family meeting which included patient's son, Corey who is at bedside. Patient had other family members who participated by phone. PT/OT/ST reviewed patient's progress. Patient's trach has been removed and plan will be that patient will not discharge on tube feeds. Tentative discharge date is set for Thursday 11/09. SW will follow up on outpatient therapy as patient is still Medicaid pending. Patient will need a front wheeled walker, shower seat, and grab bars. SW provided copy of team conference notes and will continue to follow.
--- NOTE | 2020-11-03 18:00 | NUR ---
Patients family brought him food but he did not eat much of it. He stated it did not taste good. Explained it could be some of the medications causing his food to taste different. He had a large bowel movement today. He has been requiring oxygen with activity, his saturation will drop to about 85% when moving around. No other changes at this time. Call light within reach.
--- NOTE | 2020-11-03 19:30 | NUR ---
PROVIDED VERBAL/ DEMONSTRATION EDUCATION R/T PEG TUBE CLEANING AND FLUSHING. REVIEWED ABD WOUND CARE ALSO. WOUND STILL HAS LG HARD SCAB WITH SCANT AMT OF BROWNISH DRAINAGE- AREA CLEANED AND PLACE 2X2 GAUZE DRSG. PED SITE CLEAR OF REDNESS OR DRAINAGE. NO RESIDUAL NOTED. DRAIN DRSG PLACED. PT VERBALIZED UNDERSTANDING. WILL PROVIDE LITERATURE EDUCATION REAGDING PEG TUBE CARE.
--- NOTE | 2020-11-03 21:15 | NUR ---
PICC LINE PURPLE LUMEN VERY RESISTANT TO FLUSH. NO BLOOD RETURN. RED LUMEN FLUSHES W/O DIFFICULTY WITH BLOOD RETURN. VANCOMYCIN STARTED TO [place].
--- NOTE | 2020-11-04 02:45 | NUR ---
PT REQUESTED RT TX BUT FELL BACK TO SLEEP. RT NOTIFIED.
[2020-11-04 05:13] VITALS: BP 117/72; PULSE 83; TEMP 98.3
[2020-11-04 16:32] VITALS: BP 134/77; PULSE 87; TEMP 99
--- NOTE | 2020-11-04 17:00 | NUR ---
Patient attended all therapies today. Patient reported itching and agitation to his abdominal dressing site and requested to have it removed. No active draining was observed. Left open to air at this time. Patient worked with ST this afternoon and was able to switch from Mechanical Soft to Regular diet. Patient had one episode of stool incontinence this evening and this was charted. Patient currently resting in bed, call light in reach and bed alarm set. Will continue to monitor.
--- NOTE | 2020-11-04 19:30 | NUR ---
PT COMPLAINS OF LEVEL 6/10 HEAD AND NECK ACHE. LELVEL 6/10 VSS.
--- NOTE | 2020-11-04 20:45 | NUR ---
Reported off to night nurse.
--- NOTE | 2020-11-04 21:00 | NUR ---
PICC LINE DOUBLE LUMEN VERY DIFFICULT TO FLUSH WITH NS. PT IN GOOD MOOD. TALKATIVE AND PLANNING ACTIVITIES AFTER DICHARGE. REVIEWED PEGCARE AND FLUSH. PT ABLE TO DEMONSTRATE WITH GOOD TECHNIQUE CLEANING PEG SITE AND FLUSH PEG.
[2020-11-05 05:42] VITALS: BP 129/72; PULSE 81; TEMP 98.2
--- NOTE | 2020-11-05 08:52 | NUR ---
PT DENIED PAIN THIS AM, WAS ASSISTED TO BATHROOM FOR LARGE BM THIS AM. NEEDED 02 AFTER UP AND MOVING DUE TO SOB.
--- NOTE | 2020-11-05 16:38 | NUR ---
Employment Adjudicator contacted [facility] Therapy Department and was advised that if patient does not have active insurance coverage, they recommend [employer] which is a voucher program that can offer services at a reduced cost. Patients can purchase vouchers for services like Physical Therapy. ROBB researched this website and discovered that a PT Evaluation would be $119 and PT Treatments are $82 per visit. SW reviewed this with patient who states he cannot afford this and would just go home with a home exercise program. ROBB [facility] Beatriz Guillory [facility] to inquire if there were funds available for this. ROBB also obtained order for front wheeled walker and faxed the order and referral to [facility].
[2020-11-05 18:30] VITALS: BP 142/83; PULSE 75; TEMP 98.3
--- NOTE | 2020-11-05 19:47 | NUR ---
PT GIVEN APAP TWICE TODAY FOR HEADACHE. PEG TUBE FLUSHES WELL. NO RESIDUAL. CATHFLO UTILIZED TO BOTH LUMENS OF PICC TODAY. ABLE TO FLUSH WITH DIFFICULTY AND GET BLOOD RETURN AFTERWARDS. PT COMPLETED COURSE OF VANCOMYCIN IV TREATMENT FOR MRSA TODAY. IS ON RA AT REST AND O2 WHEN NEEDED.
[2020-11-06 05:37] VITALS: BP 142/82; PULSE 79; TEMP 97.6
--- NOTE | 2020-11-06 08:08 | NUR ---
PT REMAINS IN CONTACT ISOLATION. ASSIST TO BR WITH STAND BY ASSIST. REQUEST AND GIVEN SEROQUEL AT HS AND THEN REQUEST XANAX AROUND 11ISH. SLEEPS OFF AND ON. PEG TUBE IN PLACE AND DRESSING CHANGED AT END OF SHIFT OVER SCAB ON ABDOMEN. DRESSING OVER PREVIOUS TRACH SITE CLEAN AND INTACT. TAKES PO MEDS WITH NO DIFFICULTY. REQUEST AND GIVEN TYLENOL 650MG FOR HEADACHE THIS AM. WILL CONTINUE TO MONITOR. CALL LIGHT IN PLACE.
--- NOTE | 2020-11-06 08:39 | NUR ---
Patient resting in bed call light in reach and bed alarm set. Denies questions at this time.
[2020-11-06 15:28] VITALS: BP 135/74; PULSE 80; TEMP 98.4
--- NOTE | 2020-11-06 17:43 | NUR ---
Patient did not have any therapies today, but patient has been ambulating well. See new orders for patient to be independent in his room with a walker per Judy Mcginnis. Patient was getting very anxious this afternoon and was talking about wanting to go home today. He was wanting to walk around in his room to get more exercise. Patient uses his call light appropriatly and demonstrated that he was using his walker appropriatly. See new orders for patient to be independent in his room with a walker per Judy Hwang. Patient was taken for a walk this afternoon with FINISHED CLOTH CHECKER by his side. Patient's sores on his bottom were measured today with the following results: Slit to coccyx is 0.5 x 0.1 cm long and continues to heal. The bed of the wound is white. Patients left buttock cheek is red, but blanchable so not considered a stage one at this time. Patient's right buttock cheek has a round area that is healed over and is blanchable. It is 0.3 cm round at this time and the surrounding area is blanchable. Right hip has a scabbed area that is 1.2 cm x 0.5 cm round. Patient unaware how this occured, but does not look like it is a pressure ulcer. Will continue to monitor.
--- NOTE | 2020-11-07 05:23 | NUR ---
RESTING QUUIETLY. NORCO FOR PAIN. NO N/V. NO DYSPNEA AT REST.
[2020-11-07 05:54] VITALS: BP 121/75; PULSE 84; TEMP 98.2
--- NOTE | 2020-11-07 10:37 | NUR ---
Changed out patient's bedding due to it smelling of urine. Patient was touch assist with dressing upper and was independent with dressing lower. He changed out his brief and and pants this morning indpendently. Patient is independent in his room and asks for assistance with using the call light when needed. Patient likes to walk around in his room for exercize using his walker. Patient denies questions at this time. He ate all his breakfast this morning. Will continue to monitor.
[2020-11-07 14:54] VITALS: BP 130/78; PULSE 77; TEMP 98.2
--- NOTE | 2020-11-07 16:52 | NUR ---
Patient continues to walk with his walker in his room independently. Patient changed his own pants and top this shift only needing touch assist. He orders his only meals. He denies any questions at this time.
--- NOTE | 2020-11-07 19:19 | NUR ---
RECEIVED CHANGE OF SHIFT REPORT FROM DAY SHIFT NURSE. PATIENT UP IN ROOM INDEPENDENTLY WITH NO REPORTED PROBLEMS OR COMPLAINTS.
--- NOTE | 2020-11-07 20:00 | NUR ---
DENIES CHEST PAIN/SOA/NAUSEA AT THIS TIME. UP INDEPENDENTLY WITH NO REPORTED PROBLEMS OR CONCERNS.
--- NOTE | 2020-11-07 22:32 | NUR ---
DR TROY CALLED IPR/SPOKE WITH NURSE FOR PATIENT UPDATE OF NO NAUSEA/DIARRHEA/FEVERS/COMPLAINTS OF PAIN. INFORMED TRACH OUT, PEG TUBE IN PLACE BUT TUBE FEEDING STOPPED, PATIENT TOLERATING ORAL NUTRITION WITH NO COMPLAINTS, UP IN ROOM INDEPENDENTLY WITH PLANNED DISCHARGE ON 11/09. NO ORDERS GIVEN AT END OF CALL.
--- NOTE | 2020-11-07 22:57 | NUR ---
REQUESTED AND GIVEN SEROQUEL TO HELP WITH SLEEP AFTER MELATONIN DOSE ALREADY GIVEN EARLIER. REPORTS HAS QUESTIONS FOR DOCTOR REGARDING MEDS HE WILL CONTINUE TO TAKE AT HOME. NO OTHER NEEDS OR CONCERNS REPORTED.
[2020-11-08 05:46] VITALS: BP 117/71; PULSE 89; TEMP 97.1
[2020-11-08 06:13] LABS: ALBUMIN 3.4 gm/dL (3.5-5.0); BILIRUBIN,TOTAL 0.5 mg/dL (0.0-1.0); CALCIUM 9.1 mg/dL (8.4-10.2); CREATININE, serum 0.91 (0.66-1.25); MAGNESIUM 1.8 mg/dL (1.6-2.3); PHOSPHOROUS 5.2 mg/dL (2.5-4.5); POTASSIUM 3.7 mmol/L (3.4-5.0); TOTAL PROTEIN 6.9 gm/dL (6.4-8.2)
--- NOTE | 2020-11-08 07:04 | NUR ---
PT RESTING IN BED AT BEDSIDE SHIFT REPORT. RECEIVED BREATHING TREATMENT THIS AM. BED ALARM IN PLACE.
--- NOTE | 2020-11-08 07:04 | NUR ---
CHANGE OF SHIFT REPORT GIVEN TO DAY SHIFT NURSE, CRUZ GONCALVES.
--- NOTE | 2020-11-08 10:58 | NUR ---
ROBB met with the patient to review the d/c plan for tomorrow. The patient states that he is ready to get home and he would like to pursue with the home exercise program. He states that one of his sons with transport him home. ROBB followed up with Layne at [facility] about the FWW. Layne reports that they will deliver the FWW to the patient's room today. Layne requested the patient's FAA. ROBB faxed the FAA to [facility]. The patient's RN notified ROBB that the patient will need an exercise oximetry to determine if he will need home oxygen. ROBB to continue to follow.
--- NOTE | 2020-11-08 13:43 | NUR ---
An exercise oximetry was done. RT notified SW that the patient did not qualify for oxygen.
[2020-11-08 15:49] VITALS: BP 127/77; PULSE 78; TEMP 98
--- NOTE | 2020-11-08 18:14 | NUR ---
ASSISTED PT TO FLUSH PEG TUBE WITH 60 MLS OF WATER. CHANGED DRESSING TO MRSA SCAB TO MID ABD, STILL LOOKS LIKE SMALL BLACK SCAB THAT MAY FALL OFF SOON. NO DRAINAGE. PEG TUBE SITE LOOKS GOOD. DRESSING TO COCCYX CDI SO LEFT. DRSG TO RT HIP CHANGED. SILVER AG AND MEPILEX, S2 THAT IS IS SCABBED OVER AND HEALING.
--- NOTE | 2020-11-08 19:13 | NUR ---
RECEIVED CHANGE OF SHIFT REPORT FROM DAY SHIFT NURSE.
--- NOTE | 2020-11-08 20:00 | NUR ---
PATIENT UP INDEPENDENTLY WITH NO REPORTED PROBLEMS OR CONCERNS. DENIES CHEST PAIN/SOA/NAUSEA AT THIS TIME.
[2020-11-09 04:44] VITALS: BP 130/79; PULSE 89; TEMP 97.6
--- NOTE | 2020-11-09 06:59 | NUR ---
PT RESTING IN BED, RT IN ROOM FOR BREATHING TREATMENT THIS AM.
--- NOTE | 2020-11-09 07:05 | NUR ---
CHANGE OF SHIFT REPORT GIVEN TO DAY SHIFT NURSE, CRUZ GONCALVES.
[2020-11-09] MEDS ORDERED: PROAIR HFA0.09 MG/AC IH (09:25)
[2020-11-09] MEDS ORDERED: NEXIUM 20MG20 MG PO (09:26)
[2020-11-09] MEDS ORDERED: PROZAC60 MG PO (09:27)
[2020-11-09] MEDS ORDERED: PACERONE400 MG PO (09:27)
[2020-11-09] MEDS ORDERED: FERRO-TIME325 MG PO (09:33)
[2020-11-09] MEDS ORDERED: COUMADIN 2MG2 MG/TAB PO (09:49)
--- NOTE | 2020-11-09 10:30 | NUR ---
The patient's FWW was delivered to his room. The patient is being prescribed 6 medications and the scripts were transmitted to the patient's preferred pharmacy, [facility]. ROBB contacted Zulema at [facility] to beckham the meds. The total is $289.27. ROBB contacted the patient's son, Corey, and informed him of the beckham. Corey reports that he would not be able to afford that total today, but is getting paid tomorrow and can pay for them tomorrow. ROBB notified Zulema of this at [facility]. Zulema reports that if the patient and his son talk to the television script writer, Alton, today then they could work out a plan to pay [employer] tomorrow. ROBB updated Corey. Corey reports that he knows Alton and will do this today. ROBB then met with the patient to review d/c plan. The patient states that he is ready to get home. He confirms that he wants to pursue with the home exerise program. He states that his son, Alphonse, lives with him right now. ROBB discussed treatment options and resources for drug/alcohol. The patient states that he is not interested in any treatment or resources and that he is pretty well off. ROBB then received a call back from Zulema at [facility]. Zulema reports that if the doctor adjusts the mg and quantity of one of the meds, it would take $100 off the total. ROBB notified the hospitalist and transferred him the call. The med was adjusted. The total for the patient's meds is now $180.97. ROBB contacted and updated the patient's son, Corey. The patient is to discharge back home with his son today, 11/09, and the home exercise program. No additional needs at this time.
--- NOTE | 2020-11-09 13:05 | NUR ---
PT HEALTH SUMMARY, DISCHARGE SUMMARY, AND HOME MEDS PRINTED AND REVIEWED WITH PT AND SON PAOLA. STRESSED IMPORTANCE OF FU APPTS, REVIEWED MEDICATIONS. ALL MEDS SENT TO PHARMACY OF CHOICE. BELONGINGS GATHERED BY NURSE, INCLUDING WALLET AND CELLPHONE. PICC REMOVED PRIOR TO DISCHARGE BY MARLON. PT LAYED FLAT FOR 30 MINUTES POST REMOVAL. EDUCATION FOR GOING HOME ON BLOOD THINNER REVIEWED, WELL ALCOHOL AND DRUG ABUSE SESATION, PRESSURE INJURY CARE, CARE FOR PEG TUBE, AND THE MEDICATION FLUOXETINE. PT TRANSPORTED VIA WC BY NURSE AND SEATBELTED FOR RIDE HOME. PT AND RELATION DENIED QUESTIONS, NUMBER PROVIDED IN CASE ANY ARISE.
--- NOTE | 2020-11-09 14:47 | NUR ---
INFORMATION FAXED TO [facility] FOR APPOINTMENT WITH GI, DR. GRIFFITH. THE OFFICE WILL FOLLOW UP WITH PT FOR APPT.
== END 2020-11-09 12:20 | disposition home or self-care (01) | DRG 306 ==
PROVIDERS: Physician Assistant; Student in an Organized Health Care Education/Training Program; ADMIT Internal Medicine
DX: I37.8 Other nonrheumatic pulmonary valve disorders (principal); J96.01 Acute respiratory failure with hypoxia; I81 Portal vein thrombosis; E46 Unspecified protein-calorie malnutrition; E87.1 Hypo-osmolality and hyponatremia; G72.9 Myopathy, unspecified; I48.91 Unspecified atrial fibrillation; I10 Essential (primary) hypertension; K21.9 Gastro-esophageal reflux disease without esophagitis; S30.1XXD Contusion of abdominal wall, subsequent encounter; X58.XXXD Exposure to other specified factors, subsequent encounter; E80.6 Other disorders of bilirubin metabolism; E87.6 Hypokalemia; R73.9 Hyperglycemia, unspecified; F41.0 Panic disorder [episodic paroxysmal anxiety]; F32.9 Major depressive disorder, single episode, unspecified; I27.20 Pulmonary hypertension, unspecified; R13.10 Dysphagia, unspecified; D64.9 Anemia, unspecified; F41.9 Anxiety disorder, unspecified; Z68.25 Body mass index [BMI] 25.0-25.9, adult; F10.10 Alcohol abuse, uncomplicated; F17.210 Nicotine dependence, cigarettes, uncomplicated; Z79.01 Long term (current) use of anticoagulants; Z79.891 Long term (current) use of opiate analgesic; Z79.4 Long term (current) use of insulin; Z93.1 Gastrostomy status; Z90.49 Acquired absence of other specified parts of digestive tract
CPT/HCPCS: 99222-AI; 99231-AI; 99232-AI; 99233-AI; 99239; C9113; J2997; J3370; J7050

== ENCOUNTER 2021-01-04 08:20 | Outpatient (CLI) | payer MEDICAID ==
[2021-01-04] VITALS (7 sets, daily range): BP systolic 134–166; BP diastolic 85–101; PULSE 63–70; TEMP 99
[~2021-01-04] VITALS: Ht 190.7 cm; Wt 87.0 kg
[~2021-01-04 08:20] MED LIST changes: +COUMADIN 2MG2 MG/TAB PO; +FERRO-TIME325 MG PO; +PROAIR HFA0.09 MG/AC IH; +PROTONIX 40MG T40 MG PO; +PROZAC60 MG PO
[2021-01-04 08:54] LABS: HEMATOCRIT 41.4 % (42.0-52.0); HEMOGLOBIN 13.1 g/dl (13.5-18.0); MEAN CELL VOLUME 87 fl (80.0-100.0); MEAN CORPUSCULAR HEMOGLOBIN 28 pg (27.0-31.0); MEAN CORPUSCULAR HGB CONC 32 g/dl (33.0-37.0); PLATELET COUNT 368 K/mm3 (130-400); RED BLOOD COUNT 4.76 M/mm3 (4.20-5.60); REDCELL DISTRIBUTION WIDTH-CV 14.6 % (11.5-14.5)
[2021-01-04 09:00] LABS: INR 1.7 (0.8-3.0); PROTHROMBIN TIME 19.3 SECONDS (9.7-12.8)
[2021-01-04 09:04] LABS: CALCIUM 9.5 mg/dL (8.4-10.2); CREATININE, serum 0.95 (0.66-1.25); POTASSIUM 4.1 mmol/L (3.4-5.0)
[2021-01-04] MEDS ORDERED: PROAIR HFA0.09 MG/AC IH (09:05)
[2021-01-04] MEDS ORDERED: CORDARONE200 MG/TAB PO (09:06)
[2021-01-04] MEDS ORDERED: FERROUS SU325 MG/TAB PO (09:07)
[2021-01-04] MEDS ORDERED: NEXIUM 20MG20 MG PO (09:07)
[2021-01-04] MEDS ORDERED: PROZAC60 MG PO (09:09)
[2021-01-04] MEDS ORDERED: COUMADIN 5MG5 MG/TAB PO (09:10)
== END 2021-01-04 12:15 | disposition home or self-care (01) ==
LOC: COL.RAD 08:20
PROVIDERS: Internal Medicine Cardiovascular Disease
DX: I35.1 Nonrheumatic aortic (valve) insufficiency (principal); I38 Endocarditis, valve unspecified
CPT/HCPCS: J2704

== ENCOUNTER 2021-08-22 10:27 | Day surgery (SDC) | payer MEDICAID ==
[~2021-08-22] VITALS: Ht 180.3 cm; Wt 100.0 kg
[~2021-08-22 10:27] MED LIST changes: +CORDARONE200 MG/TAB PO; +COUMADIN 5MG5 MG/TAB PO; +FERROUS SU325 MG/TAB PO
--- NOTE | 2021-08-22 10:35 | NUR ---
Patient is alert and oriented x3, admitted to bay #7 via ambulation. Medications and HX reviewed. Vitals obatined. Patient denies pain. Procedure verified and consent signed. Patient verbalized understanding of the procedure. Patient changed into a clean gown. Non-slip socks are on. Warm blaket provided. IV started in R hand on first attempt. IVF infusing without difficulty. First and last name + verified with the patient. Side rails x2. Physical assessment completed, see physical assessment. Call cullen is at bedside.
[2021-08-22] MEDS ORDERED: PROZAC40 MG PO (11:11)
[2021-08-22] MEDS ORDERED: NEXIUM 20MG20 MG (11:12)
[2021-08-22] MEDS ORDERED: BENADRYL25 M2 PO (11:12)
[2021-08-22] MEDS ORDERED: MOBIC15 MG PO (11:13)
[2021-08-22] MEDS ORDERED: COZAAR 50MG50 MG/TAB PO (11:13)
[2021-08-22] MEDS ORDERED: RT ADVAIR 228 DISKUS IH (11:13)
[2021-08-22] MEDS ORDERED: NEURONTIN300 MG/CAP PO (11:13)
[2021-08-22] MEDS ORDERED: SPIRIVA RE2.5 MCG/Ac IH (11:14)
[2021-08-22 11:31] VITALS: BP 136/77; PULSE 78; TEMP 98.1
[2021-08-22] MEDS ORDERED: NORCO 325 MG-51 TAB PO (12:29)
--- NOTE | 2021-08-22 12:30 | NUR ---
Patient was taken back to the OR.
[2021-08-22 13:23] VITALS: BP 132/75; PULSE 64; TEMP 97.7
--- NOTE | 2021-08-22 13:23 | NUR ---
Patient arrived on a cart from the OR, after recieving moderate sedation. Patient is alert and oriented x3. Vitals obtained. Report obtained. Patient requested a pepsi to drink and a warm muffin. Denies pain. Will continue to monitor per protocol. No drainage present on dressing. Call cullen is at bedside. Side rails x2.
[2021-08-22 13:38] VITALS: BP 134/78; PULSE 94
--- NOTE | 2021-08-22 13:38 | NUR ---
Patient is tolerating his muffin and Pepsi well. Denies neasea and expressed desire to be discharged. Call cullen is within reach.
[2021-08-22 13:53] VITALS: BP 153/73; PULSE 64
--- NOTE | 2021-08-22 13:53 | NUR ---
Vitals obtained. IV discontinued at this time due to impending discharge. Catheter tip intact. Pressure bandage applied. No swelling or redness. Discharge instructions were reviewed with the patient along with the educational material. Patient verbalized understanding of procedure and signed the related paperwork. Patient denied needing assistance changing into personal clothes and said his son is on the way.
--- NOTE | 2021-08-22 14:18 | NUR ---
Patient [facility] and transferred into the care of his son Alphonse. Patient has his discharge instructions and educational material in his patient bag and denied having any further questions or concerns.
== END 2021-08-22 14:20 | disposition home or self-care (01) ==
LOC: SDCO 10:27
DX: K43.2 Incisional hernia without obstruction or gangrene (principal); I10 Essential (primary) hypertension; J44.9 Chronic obstructive pulmonary disease, unspecified; I48.91 Unspecified atrial fibrillation; D64.9 Anemia, unspecified; F41.9 Anxiety disorder, unspecified; F32.A Depression, unspecified; K21.9 Gastro-esophageal reflux disease without esophagitis; Z79.01 Long term (current) use of anticoagulants; Z87.891 Personal history of nicotine dependence; Z90.49 Acquired absence of other specified parts of digestive tract; Z79.899 Other long term (current) drug therapy
CPT/HCPCS: C1781; J0690; J1885; J2250; J2704; J3010; J7120